=== PATIENT | male | born 1940 | race Caucasian/White ===

== ENCOUNTER → 2016-09-30 | Outpatient (CLI) | payer MEDICARE, BC, OTHER ==
[~2016-09-30] MED LIST: ASPI81TA85 PO; LIDOCAINE 1% MDV 20ML VIAL As Ordered ONE; MECL25CH PO; MULTCAP12 PO; SERT-141 PO; SIMV40TA2 PO; VERA240T16 PO; VITA-112 PO
--- NOTE | 2016-09-30 15:01 | REP ---
ULTRASOUND RIGHT NECK: Real-time sonographic evaluation of the right neck performed. The patient was referred for ultrasound guided biopsy of right neck adenopathy. Multiple enlarged lymph nodes are seen. The largest measures 1.8 x 1.1 x 2.4 cm. There is internal blood flow with duplex Doppler evaluation. We will proceed with ultrasound guided biopsy. Signed by Neil Morillo MD 09/30/2016 05:26 P
--- NOTE | 2016-09-30 15:10 | REP ---
ULTRASOUND GUIDED RIGHT NECK LYMPH NODE BIOPSY: The procedure was performed under the direct supervision of Dr. Morillo. The risks and benefits of the procedure were explained to the patient and informed consent was obtained. The largest right neck lymph node was localized using ultrasound guidance. The skin was prepped and draped in a sterile fashion. 1% Xylocaine was used as a local anesthetic. Using ultrasound guidance, a 19/20 gauge coaxial needle biopsy system was inserted and advanced into the lymph node. Six core biopsy samples were obtained and sent to the lab. The patient tolerated the procedure wall and there were no immediate complications. After the appropriate amount of monitored convalescence, the patient was discharged from the department. Reviewed by OLIVERIO Mcdonnell 09/30/2016 04:21 PEdited and Signed by Neil Morillo MD 09/30/2016 05:24 P
== END | disposition home or self-care (01) ==
LOC: M RADPRO 11:50
PROVIDERS: ATTEND Internal Medicine Medical Oncology
DX: R59.0 Localized enlarged lymph nodes (principal); Z79.899 Other long term (current) drug therapy; Z88.2 Allergy status to sulfonamides; Z88.1 Allergy status to other antibiotic agents

== ENCOUNTER → 2016-10-19 | Day surgery (SDC) | payer MEDICARE, BC, OTHER ==
[~2016-10-19] VITALS: Ht 182.9 cm; Wt 83.9 kg
[~2016-10-19] MED LIST changes: -LIDOCAINE 1% MDV 20ML VIAL As Ordered ONE; +LIDOCAINE 2% INJ 100 MG/5 ML SDV (FOR ANES.) As Ordered ONE; +LIDOCAINE W/EPINEPHRINE 1% 20ML VIAL As Ordered ONE; +LR 1,000 ML IV SCH; +MEPERIDINE INJ 25 MG/ML VIAL (J2175) IV PRN; +METOCLOPRAMIDE INJ 10MG/2ML VIAL (J2765) IV PRN; +MIDAZOLAM INJ 2 MG/2 ML VIAL (J2250) As Ordered ONE; +ONDANSETRON 4MG/2ML VIAL (J2405) IV PRN; +PERCOCET 5MG/325MG TAB PO PRN; +PROPOFOL 200 MG/20 ML VIAL As Ordered ONE; +ROCURONIUM BROMIDE 50 MG/5 ML VIAL As Ordered ONE; +dexameTHASONE 4 MG/ML 1ML VIAL (J1100) IV ONE; +fentaNYL 100 MCG/2 ML INJECTION (J3010) IV PRN; +fentaNYL 250 MCG/5 ML INJECTION (J3010) As Ordered ONE
[2016-10-19 14:30] VITALS: BP 151/74
--- NOTE | 2016-10-20 05:17 | RO ---
DATE OF PROCEDURE: 10/19/2016 PREOPERATIVE DIAGNOSIS: Cervical lymphadenopathy. POSTOPERATIVE DIAGNOSIS: Cervical lymphadenopathy. PROCEDURE PERFORMED: Open neck biopsy of the right submental lymph nodes. SURGEON: Umesh Pate MD WARP TIER: RAFITA Hernadez ANESTHESIA: CLINICAL PREAMBLE: This 76-year-old man was found to have multiple bilateral cervical lymphadenopathy. PET scan revealed multiple hyperbolic foci throughout the whole body, including submental region with a right submental lymph node with an SUV value of 8.8. Management options, including the open neck biopsy from the submental space, have been discussed. The patient understood and consented to the procedure. OPERATING ROOM (OR) NARRATION: Patient was identified in preoperative holding and brought to the operating room in stable condition. In supine position on the operating room table, patient received general anesthesia followed by orotracheal intubation without incident. Patient prepped and draped in the usual fashion for the procedure. A horizontal incision was outlined in submental region just above the palpable cervical lymphadenopathy. The skin was then infiltrated with 1% lidocaine with 1:100,000 epinephrine. The skin incision was made through the subcutaneous tissue and the platysma. The strap muscles were identified and retracted laterally to expose the right submental lymph node. The lymph node was then carefully dissected out en bloc around its capsule. Hemostasis was achieved. The right submental lymph node was then sent to pathology according to lymphoma protocol. Hemostasis was achieved using bipolar electrocautery. The deep skin layer was the reapproximated using #3-0 Vicryl. The final skin closure achieved using the Dermabond. At the end of the procedure, sponge and instrument counts were correct. No complication encountered. Estimated blood loss was less than 5 mL. General anesthesia was reversed, and patient was extubated and brought to recovery room in stable condition. REJI
== END | disposition home or self-care (01) ==
LOC: M SDC 08:34
PROVIDERS: ATTEND Otolaryngology
DX: C82.91 Follicular lymphoma, unspecified, lymph nodes of head, face, and neck (principal); I10 Essential (primary) hypertension; E78.5 Hyperlipidemia, unspecified; Z92.3 Personal history of irradiation
CPT/HCPCS: 38510; 88305; J1100; J2250; J3010

== ENCOUNTER → 2016-10-26 | Outpatient (REF) | payer MEDICARE, OTHER ==
[~2016-10-26] MED LIST changes: +AMLO25TA PO; -LIDOCAINE 2% INJ 100 MG/5 ML SDV (FOR ANES.) As Ordered ONE; -LIDOCAINE W/EPINEPHRINE 1% 20ML VIAL As Ordered ONE; -LR 1,000 ML IV SCH; -MEPERIDINE INJ 25 MG/ML VIAL (J2175) IV PRN; -METOCLOPRAMIDE INJ 10MG/2ML VIAL (J2765) IV PRN; -MIDAZOLAM INJ 2 MG/2 ML VIAL (J2250) As Ordered ONE; -ONDANSETRON 4MG/2ML VIAL (J2405) IV PRN; -PERCOCET 5MG/325MG TAB PO PRN; -PROPOFOL 200 MG/20 ML VIAL As Ordered ONE; -ROCURONIUM BROMIDE 50 MG/5 ML VIAL As Ordered ONE; -SERT-141 PO; +SERT50TA PO; +SIMV20TA2 PO; +VITA20008 PO; -dexameTHASONE 4 MG/ML 1ML VIAL (J1100) IV ONE; -fentaNYL 100 MCG/2 ML INJECTION (J3010) IV PRN; -fentaNYL 250 MCG/5 ML INJECTION (J3010) As Ordered ONE
[2016-10-28 10:28] LABS: HEPATITIS B SURFACE ANTIBODY NEGATIVE (POSITIVE)
== END ==
LOC: M LAB REF 17:06
PROVIDERS: ATTEND Internal Medicine Medical Oncology
DX: D75.0 Familial erythrocytosis (principal)

== ENCOUNTER → 2016-10-28 | Outpatient (CLI) | payer MEDICARE, BC, OTHER ==
[~2016-10-28] MED LIST changes: -AMLO25TA PO; +ISOVUE-370 76% 100ML VIAL (Q9967) As Ordered ONE; +SERT-141 PO; -SERT50TA PO; -SIMV20TA2 PO; -VITA20008 PO
--- NOTE | 2016-10-28 11:23 | REP ---
CT BRAIN WITHOUT AND WITH CONTRAST: 10/28/2016. Clinical history: CT 08/19/2015 at [facility]. Clinical history: Non-Hodgkin's lymphoma with progressive dizziness. Evaluate for possible metastatic disease or other. Technique: Axial noncontrast images with rescanning following bolus of 75 mL of Isovue 370. Findings. Ventricles are midline, symmetric and their size proportionate to the mild diffuse cerebral atrophy. This is unchanged since the prior study. There is some atrophy of the cerebellum as well. Basal ganglia appear symmetric and normal. Some heterogeneous low attenuation white matter changes which are mild and represent some degree of small vessel white matter ischemic change. Cortical stripe is preserved except for the mild atrophy and there is no vascular territory infarct, hemorrhage, mass or mass effect. I see no abnormal meningeal enhancement, enhancing mass, gyriform enhancement or vascular lesion. Visualized mastoids and sinuses were clear. The skull base and calvarium show no fracture or focal lesion. Impression: 1. Some mild atrophy, age appropriate without acute infarct, hemorrhage, edema or mass. No abnormal enhancement to suggest acute infarct, enhancing mass or other significant finding. Brainstem and cerebellum without acute finding. There is atrophy in the cerebellum. 2. Mastoids, sinuses, skull base and calvarium all intact. Signed by Rakan Navarrete MD 10/28/2016 04:43 P
== END ==
LOC: M RAD 07:36
PROVIDERS: ATTEND Internal Medicine Medical Oncology
DX: C85.90 Non-Hodgkin lymphoma, unspecified, unspecified site (principal); C79.31 Secondary malignant neoplasm of brain
CPT/HCPCS: 70470; Q9967

== ENCOUNTER 2016-11-28 14:58 | Inpatient (IN) | payer MEDICARE, BC, OTHER ==
[~2016-11-28] VITALS: Ht 182.9 cm; Wt 85.7 kg
[~2016-11-28 14:58] MED LIST changes: -ISOVUE-370 76% 100ML VIAL (Q9967) As Ordered ONE; -SERT-141 PO; +SERT50TA PO
[2016-11-28] MEDS ORDERED: OXAZEPAM 10 MG CAP PO PRN (16:30)
[2016-11-28] MEDS ORDERED: ONDANSETRON 4MG/2ML VIAL (J2405) IV PRN (16:30)
[2016-11-28] MEDS ORDERED: ACETAMINOPHEN TAB 650MG DOSE (2X325MG) PO PRN (16:30)
[2016-11-28] MEDS ORDERED: POLYVINYL ALCOHOL OPHTH SOLN 15 ML(LIQUITEARS) OU PRN (16:30)
[2016-11-28] MEDS ORDERED: SIMV20TA2 PO (16:33)
[2016-11-28] MEDS ORDERED: VITA20008 PO (16:34)
[2016-11-28 17:00] VITALS: BP 110/57
[2016-11-28 17:01] LABS: MEAN CORPUSCULAR HEMOGLOBIN 29.9 pg (27.0-33.0); MEAN CORPUSCULAR HGB CONC 32.3 g/dl (32.0-36.5); MEAN CORPUSCULAR VOLUME 92.6 fl (80.0-96.0); PLATELET COUNT, AUTOMATED 153 k/mm3 (150-450); RED CELL DISTRIBUTION WIDTH 15.6 % (11.5-14.5); WHITE BLOOD COUNT 12.8 K/mm3 (4.0-10.0)
[2016-11-28 17:04] VITALS: BP 103/55
[2016-11-28] MEDS: MULTIVITAMINS/MINERALS THERAP 1 TAB PO SCH (17:07)
[2016-11-28] MEDS: VITAMIN D 1,000 INTERNATIONAL UNITS TABLET PO SCH (17:08)
[2016-11-28] MEDS: NS 1,000 ML IV SCH (17:08)
[2016-11-28] MEDS: ASPIRIN 81 MG ENTERIC TAB PO SCH (17:08)
[2016-11-28 17:09] LABS: INR 1.05
--- NOTE | 2016-11-28 17:16 | ECGEPIP ---
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
--- NOTE | 2016-11-28 17:20 | HPE ---
DATE OF ADMISSION: 11/28/2016 This is a patient of Dr. Ritter. Oncologist is Dr. Ashley Howell. ENT provider is Dr. Pate. CHIEF COMPLAINT: SUMMARY OF HIS PRESENTATION: This is a 76-year-old patient with follicular lymphoma who is receiving his second round of chemotherapy starting today. He was started on Rituxan. During the course of the infusion, he developed hypotension and was noted to be orthostatic. The infusion was stopped. He was given IV fluids. He did not respond to a 1 liter bolus. I was called for admission, and he was transferred to the intensive care unit with PCU status. Recently, he has been feeling. In the last week, he has had decreased appetite and was dehydrated with a gastrointestinal (GI) illness around a week ago, but since that point, he has been doing okay. He has been afebrile. Apparently at oncology today, he did have a temperature recorded of 100.8 as reported by the family, one of whom is a nurse. Surgical history is notable for his neck biopsy as well as . Past medical history is notable for follicular lymphoma, stage III, hypertension, polycythemia for which he had been getting quarterly blood draws up until November of last year, hypercholesterolemia, history of prostate cancer, status post prostate seeding in 2001, history of rosacea. ALLERGIES: SHELLFISH. MEDICATIONS AT HOME: Include: - simvastatin 20 mg daily - aspirin 81 mg daily - multivitamin daily - Zoloft, which he apparently stopped taking in the last few weeks - vitamin D supplement 2000 units daily SOCIAL HISTORY: He is a nonsmoker. He drinks a tall [place] every evening at 5:00 p.m. He has never had withdrawal symptoms. His is succumbing to Alzheimer's disease and has home care, which is a cause of stress for him. REVIEW OF SYSTEMS: No headache. No visual changes. No runny nose. No sore throat. No neck pain. No rhinorrhea. He does suffer from dry eyes chronically. No cough. No shortness of breath. No orthopnea. No paroxysmal nocturnal dyspnea. No palpitations. No abdominal pain. He has had no change in bowel or bladder habits in the last week. No focal weakness. No history of seizures. Otherwise is unremarkable. PHYSICAL EXAMINATION: Vital Signs: Heart rate 112, blood pressure 97/54, 97% on room air, respiratory rate is 17. He is awake and appropriately interactive, pleasantly conversant and making jokes. Head is normocephalic. Sinuses are nontender. Pupils are equal, round and reactive, anicteric, not injected. Mucous membranes are moist. Neck is supple. No cervical or supraclavicular adenopathy. Breathing is symmetrical. I:E ratio is 1:3 with some upper airway sounds. Heart is in a regular rate and rhythm that is tachycardic with a heart rate of 112. Abdomen is soft, doughy, nontender to deep palpation. No lower extremity edema. Strength is symmetrical in the upper and lower extremities. Cranial nerves II-XII are grossly intact. He has normal mood and affect, although he seems somewhat anxious. There are labs available for me to review from Dr. Howell' office, which include a sodium of 143, potassium 4.2, chloride 105, carbon dioxide 28, BUN 16, creatinine 1, glucose of 99. White cell count 4.4. Hemoglobin 14.5 and platelets of 315. ASSESSMENT: This is a 76-year-old with orthostatic hypotension brought on during chemotherapy. The patient is still relatively tachycardic and hypotensive to the PCU with inpatient status as requires two midnights for further workup and diagnosis. My plan will be as follows: 1. Cardiovascular: The patient will receive IV fluid, will be monitored on telemetry overnight. I noticed that there is some ectopy on monitor. Will check a magnesium level and again repeat labs. This is most likely a reaction to his Rituxan. I did discuss this case by phone with Dr. Howell at the time of transfer. The possibility of infectious disease occurs to me. I have sent blood cultures. The patient is currently afebrile. No role for antibiotics at this time. Will monitor him clinically. 2. The patient has a history of hypertension and is on verapamil at home. The plan had been to cut that dose in half. At this point, we will hold it completely as he is relatively hypotensive. 3. The patient has hyperlipidemia. Will continue his simvastatin. 4. The patient has a history of relatively heavy alcohol use. Will make Serax available as needed. 5. The patient has appropriate deep vein thrombosis (DVT) prophylaxis.
[2016-11-28 17:32] LABS: ALBUMIN 2.7 GM/DL (3.2-5.2); ALBUMIN/GLOBULIN RATIO 0.87 (1.00-1.93); ALKALINE PHOSPHATASE 79 U/L (45-117); ALT/SGPT 34 U/L (12-78); ANION GAP 10 MEQ/L (8-16); AST/SGOT 25 U/L (15-37); BILIRUBIN,TOTAL 0.7 MG/DL (0.2-1.0); BLOOD UREA NITROGEN 16 MG/DL (7-18); CALCIUM LEVEL 7.9 MG/DL (8.8-10.2); CARBON DIOXIDE LEVEL 24 MEQ/L (21-32); CHLORIDE LEVEL 111 MEQ/L (98-107); CREATININE FOR GFR 1.14 MG/DL (0.70-1.30); GLOMERULAR FILTRATION RATE > 60.0 (>42); GLUCOSE, FASTING 133 MG/DL (83-110); MAGNESIUM LEVEL 1.6 MG/DL (1.8-2.4); POTASSIUM SERUM 3.8 MEQ/L (3.5-5.1); SODIUM LEVEL 145 MEQ/L (136-145); T UPTAKE 36 % (33-40); THYROXINE (T4) 6.4 UG/DL (4.5-12.0); TOTAL PROTEIN 5.8 GM/DL (6.4-8.2)
--- NOTE | 2016-11-28 17:40 | REP ---
Portable chest x-ray: Single view: History: Orthostasis. Comparison chest x-ray: 08/23/2016. Findings: EKG monitoring electrodes overlie the chest. The lungs are well inflated and clear. Heart is not enlarged. Pulmonary vasculature is not increased. No significant bony abnormality is seen. Impression: No active disease. Signed by Garland Lott MD 11/28/2016 07:46 P
[2016-11-28 20:00] VITALS: BP 119/58
[2016-11-28 21:02] LABS: ANISOCYTOSIS 1+; BANDS 23 % (< 11); OVALOCYTES 1+; POIKILOCYTOSIS 1+
[2016-11-28] MEDS: SIMVASTATIN 20 MG TAB PO SCH (21:03)
[2016-11-29] VITALS (7 sets, daily range): BP systolic 101–126; BP diastolic 55–75
[2016-11-29] MEDS: NS 1,000 ML IV SCH ×3 (02:53→22:11)
[2016-11-29 05:15] LABS: CALCIUM LEVEL 7.1 MG/DL (8.8-10.2); CREATININE FOR GFR 1.25 MG/DL (0.70-1.30); GLOMERULAR FILTRATION RATE 59.5 (>42); MAGNESIUM LEVEL 1.7 MG/DL (1.8-2.4); POTASSIUM SERUM 4.6 MEQ/L (3.5-5.1)
[2016-11-29 05:20] LABS: BASO % 0.1 % (0.0-1.0); EOS % 0.2 % (0.0-3.0); LARGE UNSTAINED CELL # 0.1 K/mm3 (0.0-0.4); LYMPH # 0.2 K/mm3 (1.5-4.5); LYMPH % 1.3 % (24.0-44.0); MEAN CORPUSCULAR HEMOGLOBIN 29.4 pg (27.0-33.0); MEAN CORPUSCULAR HGB CONC 31.6 g/dl (32.0-36.5); MEAN CORPUSCULAR VOLUME 93.1 fl (80.0-96.0); MONO # 0.6 K/mm3 (0.0-0.8); MONO % 4.4 % (0.0-5.0); NEUTROPHILS # 12.8 K/mm3 (1.8-7.7); NEUTROPHILS % 92.9 % (36.0-66.0); PLATELET COUNT, AUTOMATED 111 k/mm3 (150-450); RED CELL DISTRIBUTION WIDTH 15.9 % (11.5-14.5); WHITE BLOOD COUNT 13.8 K/mm3 (4.0-10.0)
[2016-11-29] MEDS ORDERED: MAG SULF 1GM/100ML (MAG RUN) 1 GM in APPROPRIATE DILUENT 1 EA IV ONE (08:00)
[2016-11-29 08:23] LABS: VENOUS BASE EXCESS -3.3 (-2.0-2.0); VENOUS O2 SATURATION 94.7 % (60.0-80.0); VENOUS PARTIAL PRESSURE CO2 37.1 mmHg (38.0-50.0); VENOUS PARTIAL PRESSURE O2 71.7 mmHg (30.0-50.0); VENOUS STANDARD HCO3 21.7 MEQ/L; VENOUS TOTAL CO2 22.4 MEQ/L (24.0-28.0)
[2016-11-29] MEDS: MULTIVITAMINS/MINERALS THERAP 1 TAB PO SCH (08:43)
[2016-11-29] MEDS: ASPIRIN 81 MG ENTERIC TAB PO SCH (08:44)
[2016-11-29] MEDS: VITAMIN D 1,000 INTERNATIONAL UNITS TABLET PO SCH (08:44)
[2016-11-29] MEDS: ENOXAPARIN 40 MG/0.4 ML SYRINGE (J1650) SC SCH (08:44)
[2016-11-29] MEDS ORDERED: VANCOMYCIN HCL 1,000 MG, VIAL MATE ADAPTER 1 EACH in D5W 250 ML IV SCH (09:00)
[2016-11-29 09:06] LABS: ERYTHROCYTE SEDIMENTATION RATE 6 mm/hr (0-20)
--- NOTE | 2016-11-29 09:15 | PHACANCOPD ---
PHARMACY VANCOMYCIN DOSING Pt Demographics Demographics Patient Age:76 , Weight:84.400 , Gender: male Adjusted Body Weight Date: 11/29/16, Adjusted Body Weight: [84.4] Kg Events Past 24 Hours Events Past 24 Hours: NO: Change in CrCl, Dialysis, Diuretic Therapy, Elevation in WBC, Fever, Other, Pending Diagnostics, Pending Procedures Vancomycin Vancomycin indication: Sepsis Vancomycin Target Ranges: 15-20 mcg/ml Vancomycin Load Y/N: Yes Load Dose Date Time Vancomycin Load Dose: 2g Date: 11/29/16 Time: 09:00 Vancomycin Dose Date: 11/29/16. Current Vancomycin Dose: [1g q24h] Intermittent Dosing?: No Labs Labs Item Value Date Time White Blood Count 12.8 K/mm3 H 11/28/16 1643 White Blood Count 13.8 K/mm3 H 11/29/16 0442 Creatinine 1.14 MG/DL 11/28/16 1643 Creatinine 1.25 MG/DL 11/29/16 0442 Vital Signs Label Value Date Time Patient Temperature 99.8 degrees F 11/28/16 2000 Temperature Source Tympanic 11/28/16 2000 Patient Temperature 98.4 degrees F 11/29/16 0000 Temperature Source Tympanic 11/29/16 0000 Patient Temperature 99.0 degrees F 11/29/16 0400 Temperature Source Tympanic 11/29/16 0400 Micro Microbiology 11/28/16 Blood Culture, Received Pending 11/28/16 Blood Culture, Received Pending Creatinine Clearance Date:11/29/16. Creatinine Clearance: [53.5ml/min]. Pending Labs blood culture Assessment and Plan Maintaining Current Dose?: Yes Reason for dose change: No Dose Change Pharmacist Note Pharmacist Note Date: 11/29/16. Pharmacist note: Pt is a 76 y/o male with cancer being treated for sepsis target trough of 15-20mcg/ml. Pt recently has been having fevers and elevated wbc. There is no history of therapy with vancomycin at [facility]. To achieve target trough a loading dose of 2g was started at 9:00 11/29/16. Maintenance will consist of 1g q24h. We will continue to monitor and adjust dose as needed. MELISA THOMAS PHARMACY Nov 29, 2016 09:15
[2016-11-29] MEDS ORDERED: VANCOMYCIN HCL 1,000 MG, VIAL MATE ADAPTER 1 EACH in D5W 250 ML IV ONE (10:00)
--- NOTE | 2016-11-29 12:53 | IPN ---
DATE: 11/29/2016 Time patient was seen was this morning at 8:45 The patient has been seen and examined at bedside. No acute events overnight. The patient is feeling better today. Denies any chest pain, trouble breathing, abdominal pain, nausea, vomiting, diarrhea, or constipation. The patient does remember what happened yesterday and he stated that he was having his regular infusion at the oncology office and about 4 hours into the infusion he blacked out and when he woke up he was very weak and could not stand up and his systolic blood pressure was in the 40s. Therefore, he was admitted. While in the hospital, he noticed that he has a rash on his arms and legs and he received at least 4 liters of fluid overnight and he is feeling better now. He believes that his hypotension was related with his medication. PHYSICAL EXAMINATION: VITAL SIGNS: Temperature 96, pulse 64, respirations 20, blood pressure 110/75, oxygen saturation was 97% on room air. GENERAL: The patient is a pleasant, elderly male who was alert, awake, and oriented times three. Does not appear to be in distress. Resting comfortably in bed with the head elevated at 30 degrees. HEENT: Normocephalic, atraumatic. Extraocular motors intact. Mucosa moist. NECK: Supple. No neck lymphadenopathy. CARDIOVASCULAR: Regular rate and rhythm. Normal S1, S2. No murmurs, rubs or gallops. LUNGS: Clear to auscultation bilaterally. No wheezes, rales or rhonchi. ABDOMEN: Positive bowel sounds. Soft, nontender, nondistended. No peritoneal signs. No ecchymosis. EXTREMITIES: Slight nonpitting edema in bilateral arms. Otherwise, no ecchymosis. No clubbing. SKIN: Warm and dry. The patient does have a petechial type of rash in bilateral upper and lower extremities. NEUROLOGIC: Cranial nerves II through XII intact. No focal or neurological deficits. PSYCHIATRIC: Normal affect. LABORATORY DATA: WBC 13.8, elevated from yesterday 12.8, hemoglobin 12.5, hematocrit 39.7, reduced from yesterday, platelets 111, reduced from 153 yesterday. Sodium 142, potassium 4.6, chloride 101, bicarbonate 21, anion gap 10, BUN 18, creatinine 1.25, GFR 59.5, fasting glucose 173, lactic acid was found to be slightly elevated today at 2.3. Calcium 7.1, magnesium 1.7, total CK was 30. CK-MB 1, troponin less than 0.02, C-reactive protein was slightly elevated at 5.55. The patient had an ABG this morning that showed pH of 7.377, PCO2 of 37.1, PO2 of 71.7, saturating at 94% with base excess of -3.3 liters. Blood culture times two is pending. No new imaging. ASSESSMENT AND PLAN: 76-year-old male with a past medical history of follicular lymphoma, stage III, recently started on chemotherapy with Rituxan, finished the first cycle one month ago and yesterday was receiving the second cycle. Also history of hypertension, polycythemia, hypercholesterolemia, history of prostate cancer, status post prostate seeding in 2001, history of rosacea, who presented with: 1. Severe hypotension, responded to fluid. It is possibly secondary to severe sepsis versus anaphylactic shock from infusion. However, the patient did have the same infusion. The patient did also have elevated WBC this morning compared to yesterday and elevated C-reactive protein. The patient has been started on vancomycin and Zosyn to empirically cover for severe sepsis. Blood culture result is pending currently. The patient did develop petechial type of rash on both arms and legs, which indicates possible drug reaction. We will continue to monitor. 2. History of hypertension. Continue home medications. Verapamil has been cut in half. We will continue to hold at this point. 3. Hyperlipidemia. Continue statin. 4. History of alcohol use. The patient is on Serax as needed. 5. Deep vein thrombosis (DVT) prophylaxis with Lovenox subcutaneously. DISPOSITION: The patient's blood pressure has improved compared to yesterday status post IV fluid resuscitation. Today, the patient's white count worsened and therefore has been started on empiric antibiotics; however, the patient's history does represent possible drug reaction. We will continue to monitor the patient closely. The patient has been discussed with attending doctor, Dr. Marquez. My preceptor for this patient encounter was Dr. Marquez. The preceptor was physically present in the building during the encounter and was fully available. As needed, all aspects of the patient interview, examination, medical decision making process, and medical care plan development were reviewed and approved by the preceptor. The preceptor is aware and concurs with the plan as stated in the body of this note and will attest to such by his/her cosignature.
[2016-11-29] MEDS: PIPERACILLIN/TAZOBACTAM SOD 3.375 GM in D5W MINI-BAG PLUS 50 ML IV SCH ×2 (13:24→18:23)
--- NOTE | 2016-11-29 14:43 | IPN ---
MEDICAL ONCOLOGY INPATIENT PROGRESS NOTE DATE OF SERVICE: 11/28/2016 Dr. Gallo asked me to write a note regarding Maninder Vides, a 76-year-old man with stage III, grade 1-2 follicular non-Hodgkin's lymphoma, who began palliative treatment with bendamustine/rituximab four weeks ago. He has had major response to treatment, his initially very bulky cervical, supraclavicular and axillary adenopathy now nearly imperceptible and barely palpable on exam. He was in the office today for his second cycle of treatment, but skilled nursing through his rituximab infusion developed lightheadedness, was found to be hypotensive. He is on verapamil. He was not tachycardiac. He was put in a reclining position, given IV fluids and rituximab was stopped. He had been pretreated with Tylenol and Benadryl and dexamethasone. Orthostatic measurements confirmed orthostatic hypotension. He completed of 1 liter bag of normal saline and at that point requested to go to the bathroom, but in the bathroom again felt faint and began to faint and required being brought back immediately to a chair and reclined, where he was found to be quite hypotensive. systolic blood pressure 70. His peripheral pulses remained palpable and nontachycardic. I repeat orthostatic measurements he was again orthostatic and at this point I requested admission and Dr. Gallo accepted him on the hospitalist service. Once hospitalized he has developed a petechia like rash involving both forearms, upper and lower back, inguinal folds. His platelets in the office today and again here in the hospital are normal. Labs are not consistent with dehydration , though he complains of anorexia and generalized weight loss over the last few months. He has some mild leukocytosis, normal hemoglobin and hematocrit, and normal platelets. Electrolytes are unremarkable. Lactate dehydrogenase is normal at 212. Troponin is undetectable, albumin 2.7, TSH 2.4. At the bedside tonight in the ICU, he is accompanied by his son. Shukri is awake, alert, upright, reclining gently, chatty, talkative. Denies any distress, shortness of breast, tongue swelling or difficulty swallowing. His heart rate is 110 on the monitor. He shows me his rash which is diffuse, coalescing and again involving the arms, back, upper thighs/inguinal region. IMPRESSION: 1. Rituximab SIRS (standard infusion reaction syndrome) reaction, moderate to severe, now recovered after IV hydration with a rash, orthostatic hypotension, no respiratory symptoms. No evidence of tumor lysis syndrome. 2. Stage III follicular non-Hodgkin's lymphoma status post one cycle of bendamustine/Rituxan with major clinical response. Former bulky neck axillary adenopathy now undetectable. PLAN: 1. Supportive care with IV fluids and monitoring. Agree with repeating CBC as done already tonight and tomorrow morning along with CMP. Persistent or recurrent hypotension should prompt consideration of epinephrine treatment as a standard treatment for rituximab related SIRS. Agree with no empiric antibiotics for now. 2. I will follow Mr. Vides during this admission. I leave town on Monday for four days. In my stead will be one of the covering oncologists as needed. Edited 11/28/2016 @ 8904 brandy MENDOZA
[2016-11-29] MEDS: diphenhydrAMINE INJ 50MG/ML VIAL (J1200) IV SCH ×2 (18:50→23:54)
[2016-11-29] MEDS: SIMVASTATIN 20 MG TAB PO SCH (22:10)
[2016-11-30] VITALS (11 sets, daily range): BP systolic 121–184; BP diastolic 64–83
[2016-11-30 05:19] LABS: ANION GAP 9 MEQ/L (8-16); BLOOD UREA NITROGEN 18 MG/DL (7-18); CALCIUM LEVEL 7.8 MG/DL (8.8-10.2); CARBON DIOXIDE LEVEL 24 MEQ/L (21-32); CHLORIDE LEVEL 111 MEQ/L (98-107); CREATININE FOR GFR 1.13 MG/DL (0.70-1.30); GLOMERULAR FILTRATION RATE > 60.0 (>42); GLUCOSE, FASTING 121 MG/DL (83-110); MAGNESIUM LEVEL 2.1 MG/DL (1.8-2.4); POTASSIUM SERUM 4.3 MEQ/L (3.5-5.1); SODIUM LEVEL 144 MEQ/L (136-145)
[2016-11-30 05:52] LABS: BASO % 0.2 % (0.0-1.0); EOS % 0.6 % (0.0-3.0); LARGE UNSTAINED CELL # 0.2 K/mm3 (0.0-0.4); LARGE UNSTAINED CELL % 2.3 % (0.0-4.0); LYMPH # 0.6 K/mm3 (1.5-4.5); LYMPH % 7.3 % (24.0-44.0); MEAN CORPUSCULAR HGB CONC 32.2 g/dl (32.0-36.5); MEAN CORPUSCULAR VOLUME 93.3 fl (80.0-96.0); MONO # 0.4 K/mm3 (0.0-0.8); MONO % 5.8 % (0.0-5.0); NEUTROPHILS # 5.6 K/mm3 (1.8-7.7); NEUTROPHILS % 83.8 % (36.0-66.0); PLATELET COUNT, AUTOMATED 110 k/mm3 (150-450); RED CELL DISTRIBUTION WIDTH 16.3 % (11.5-14.5); WHITE BLOOD COUNT 6.7 K/mm3 (4.0-10.0)
--- NOTE | 2016-11-30 06:08 | ECGEPIP ---
Stationary ECG Study 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
[2016-11-30] MEDS: diphenhydrAMINE INJ 50MG/ML VIAL (J1200) IV SCH ×3 (06:20→18:30)
[2016-11-30] MEDS: MULTIVITAMINS/MINERALS THERAP 1 TAB PO SCH (08:26)
[2016-11-30] MEDS: VITAMIN D 1,000 INTERNATIONAL UNITS TABLET PO SCH (08:26)
[2016-11-30] MEDS: ASPIRIN 81 MG ENTERIC TAB PO SCH (08:26)
[2016-11-30] MEDS: ENOXAPARIN 40 MG/0.4 ML SYRINGE (J1650) SC SCH (08:26)
--- NOTE | 2016-11-30 09:38 | IPN ---
DATE: 11/29/2016 Mr. Vides is reclining comfortably in his bed. He is quite chatty and talkative tonight. He has coalescing petechial rash, now seemingly more coalesced in dependent areas, not progressed. He is on a Benadryl. He was started on broad-spectrum antibiotics today. I have spoken with Dr. Marquez. Reviewing his blood cultures and vital signs, he has had no fever spikes for 24 hours. Blood cultures are negative to date. Overall, my strong opinion is this is a rituximab standard infusion reaction and not likely to be a case of an infection associated sepsis. It would be reasonable to discontinue antibiotics early. He is receiving fixed dose Benadryl every 6 hours, which is reasonable to continue for at least 24 hours. The petechial rash may persist beyond the time of his initial hypotensive reaction and may take days, possibly even weeks to fully resolved. Today's blood pressure is stable. He is not requiring fluid boluses. He is quite comfortable and able to speak in full long sentences telling jokes etc. IMPRESSION: Mr. Vides is a 76-year-old man with stage IIIA follicular non-Hodgkin's lymphoma status post one cycle of bendamustine rituxan with major clinical response. His second cycle was interrupted and complicated by what appears to be a rituximab associated reaction. This is not anaphylaxis per se. It is not a drug allergy per se, but rather a recognized infusion reaction associated with certain monoclonal antibodies, including rituximab, cetuximab, and trastuzumab. Treatment is typically Benadryl, sometimes epinephrine and slowing down infusion of the drug. He received about a half dose of rituximab before this reaction started yesterday, having received a full dose on his first cycle uneventfully. Barring any recurrent hypotension or fever spikes, he could probably discharge home fairly soon with as needed Benadryl. He is currently scheduled to return to the office Monday morning for rechallenge with rituximab, which is typically done at a half rate and we would probably attempt a half dose, watching him super carefully and treating per typical protocol for rituximab reactions as needed. If he had another severe reaction, we would discontinue rituximab altogether; however, it is the back bone of his treatment currently and a major component of treating non-Hodgkin's lymphoma, and the patient's are often rechallenged with the drug and a way is found for them to tolerate it, either by splitting the dose or infusing much more slowly. There are alternative treatments if necessary. I have reviewed all these issues with Maninder holbrook at bedside. PLAN: 1. If the patient continues a stable, normotensive with no progression of rash, he is probably safe to go home off antibiotics and with as needed Benadryl. 2. He has a followup scheduled in the office on Monday. 3. I will be out of town November [address] Woody and Dr. Tarango are covering the practice and are able to consult on an as-needed basis.
[2016-11-30 11:04] LABS: CHOLESTEROL LEVEL 121 MG/DL (<200); TRIGLYCERIDES LEVEL 116 MG/DL (<150)
[2016-11-30 11:22] LABS: INR 1.15
--- NOTE | 2016-11-30 11:57 | IPN ---
DATE OF VISIT: 11/30/2016 Time patient was seen: 8:15. The patient has been seen and examined at the bedside. The patient became very bradycardic overnight with heart rate in the high 30s. EKG was done and shows sinus bradycardia; however the patient was asymptomatic. Blood pressure was stable. The patient's heart rate remained in the 40s overnight. The patient also admits to feeling more tired when the heart rate was slower; however, blood pressure remained stable in the 130s to 140s systolic. Otherwise the patient denies any fever or chills, any chest pain, trouble breathing, abdominal pain, nausea, vomiting diarrhea or constipation. The patient admits to his rash getting better. He denies any other current complaint. PHYSICAL EXAMINATION: VITAL SIGNS: Temperature 96.2, pulse 58, respirations 22, blood pressure 142/73, oxygen saturation 97% on room air. GENERAL: The patient is a pleasant, well-developed, well-nourished elderly male who is alert and oriented times three. He does not appear to be in distress, resting comfortably in bed with head elevated at 30 degrees. HEENT: Normocephalic atraumatic. Extraocular muscles intact. Mucosa moist. NECK: Supple, no neck lymphadenopathy. CARDIOVASCULAR: Bradycardic, S1, S2, no murmurs. LUNGS: Clear to auscultation bilaterally. No rales or rhonchi. ABDOMEN: Positive bowel sounds. Soft, nontender, No peritoneal signs. Normal pulses. EXTREMITIES: No edema, clubbing or cyanosis. SKIN: Warm and dry. NEUROLOGY: Cranial nerves II-XII intact, no focal neurologic deficits. LABORATORY DATA WBC 6.7, hemoglobin 12.3, hematocrit 30.3, with platelet count of 110 and MCV of 93.3. Sodium 144, potassium 4.3, chloride 101, bicarbonate 24, anion gap 9, BUN 18, creatinine 1.13, GFR greater than 60%, 9.5, fasting glucose was 121, repeat lactic acid last night was 1, calcium 7.8, magnesium 2.1, total CK 43, CK MB 1, troponin less than 0.02. CRP 2.37. Blood culture times two are negative after 48 hours. The patient's lipid panel is pending, new coagulation panel is pending. ASSESSMENT AND PLAN: 76-year-old male with past medical history of stage III A follicular lymphoma recently started on chemotherapy with Rituximab, finished the first cycle a month ago and received half of the second cycle on the day of admission. Other history including hypertension, polycythemia, hypercholesterolemia, prostate cancer, status post prostate seeding in 2001, history of rosacea presented with: 1. Severe hypotension, responded to fluid. The patient did have a mildly elevated WBC and also CRP. The patient was initially started on vancomycin and Zosyn; however was discontinued due to hematology/oncology belief this is likely a drug reaction to due rituximab. In addition the patient's petechial rash has improved with Benadryl. Will continue to monitor. 2. Bradycardia with a heart rate in the high 30s last night. EKG shows sinus bradycardia. The patient is currently not on any beta blockers or any medication to slow down the heart rate. Will consider consulting cardiology to investigate the etiology for the bradycardia. At this point will order a grounds supervisor, repeat the EKG, as well as rule out infectious etiologies for the bradycardia and continue to monitor the patient. 3. History of hypertension. Continue to hold home medications due to severe hypotension. 4. Hyperlipidemia. Continue statin. 5. History of alcohol use. Continue Serax as needed. The patient has not used any yet. 6. History of prostate cancer. Stable. 7. History of hypercholesterolemia. Lipid panel has been ordered due to acute bradycardia. 8. Deep venous thrombosis (DVT) prophylaxis. On Lovenox. DISPOSITION: The patient's blood pressure remains stable; however the patient developed a new bradycardia. Will continue to monitor and consider to consult cardiology. The patient has been discussed with the attending doctor, Dr. Marquez. My preceptor for this patient encounter was Dr. Marquez. The preceptor was physically present in the building during the encounter and was fully available as needed. All aspects of the patient interview, examination, medical decision making process, and medical care plan development were reviewed and approved by the preceptor. The preceptor is aware and concurs with the plan as stated in the body of this note and will attest to such by his co-signature.
--- NOTE | 2016-11-30 16:42 | ECGEPIP ---
Stationary ECG Study [facility] Test Date: 2016-11-30 Pat Name: BAYRON VASQUEZ Department: Room: [place] [address] Gender: M Mems Device Scientist: KIRBY : 1940 Requested By: DARRON QUINTEROS Order Number: [id number] Reading MD: Anisa Ornelas Measurements Intervals [place] Rate: 62 P: 40 NV: 156 QRS: 14 QRSD: 90 T: 33 QT: 428 QTc: 436 Interpretive Statements SINUS RHYTHM NORMAL RATE FASTER Electronically Signed On 11-30-2016 16:42:29 EST by Anisa Ornelas
[2016-11-30] MEDS: SIMVASTATIN 20 MG TAB PO SCH (22:33)
[2016-12-01] MEDS ORDERED: SLF 3 ML SYR IV PRN (01:00)
[2016-12-01] MEDS: diphenhydrAMINE INJ 50MG/ML VIAL (J1200) IV SCH ×3 (01:16→11:58)
[2016-12-01 05:54] VITALS: BP_SYST 135; BP_SYST 143; BP_SYST 167; BP_DIAS 74; BP_DIAS 76; BP_DIAS 77
[2016-12-01 05:56] LABS: BASO % 0.5 % (0.0-1.0); EOS # 0.2 K/mm3 (0.0-0.50); EOS % 4.5 % (0.0-3.0); LARGE UNSTAINED CELL # 0.1 K/mm3 (0.0-0.4); LARGE UNSTAINED CELL % 2.4 % (0.0-4.0); LYMPH # 0.8 K/mm3 (1.5-4.5); LYMPH % 20.2 % (24.0-44.0); MEAN CORPUSCULAR HEMOGLOBIN 29.6 pg (27.0-33.0); MEAN CORPUSCULAR HGB CONC 32.1 g/dl (32.0-36.5); MEAN CORPUSCULAR VOLUME 92.3 fl (80.0-96.0); MONO # 0.3 K/mm3 (0.0-0.8); MONO % 8.3 % (0.0-5.0); NEUTROPHILS # 2.4 K/mm3 (1.8-7.7); PLATELET COUNT, AUTOMATED 138 k/mm3 (150-450); RED CELL DISTRIBUTION WIDTH 15.9 % (11.5-14.5); WHITE BLOOD COUNT 3.7 K/mm3 (4.0-10.0)
[2016-12-01] MEDS ORDERED: SLF 3 ML SYR IV SCH (06:00)
[2016-12-01 06:31] LABS: ANION GAP 4 MEQ/L (8-16); BLOOD UREA NITROGEN 15 MG/DL (7-18); CARBON DIOXIDE LEVEL 31 MEQ/L (21-32); CHLORIDE LEVEL 110 MEQ/L (98-107); CREATININE FOR GFR 0.99 MG/DL (0.70-1.30); GLOMERULAR FILTRATION RATE > 60.0 (>42); GLUCOSE, FASTING 92 MG/DL (83-110); POTASSIUM SERUM 4.4 MEQ/L (3.5-5.1); SODIUM LEVEL 145 MEQ/L (136-145)
[2016-12-01 08:00] VITALS: BP_SYST 118; BP_SYST 120; BP_SYST 121; BP_SYST 162; BP_DIAS 62; BP_DIAS 64; BP_DIAS 68; BP_DIAS 72
[2016-12-01] MEDS: ENOXAPARIN 40 MG/0.4 ML SYRINGE (J1650) SC SCH (08:12)
[2016-12-01] MEDS: ASPIRIN 81 MG ENTERIC TAB PO SCH (08:12)
[2016-12-01] MEDS: VITAMIN D 1,000 INTERNATIONAL UNITS TABLET PO SCH (08:12)
[2016-12-01] MEDS: MULTIVITAMINS/MINERALS THERAP 1 TAB PO SCH (08:12)
[2016-12-01 08:13] VITALS: BP 162/72
[2016-12-01] MEDS ORDERED: AMLO25TA PO (09:53)
--- NOTE | 2016-12-01 16:23 | DSES ---
DATE OF ADMISSION: 11/28/2016 DATE OF DISCHARGE: 12/01/2016 TIME PATIENT SEEN: This morning at 9:00. ADMISSION DIAGNOSES: 1. Severe hypotension. 2. History of hypertension. 3. History of hyperlipidemia. 4. History of heavy alcohol use. DISCHARGE DIAGNOSES: 1. Severe hypotension, responded to fluid, likely secondary to drug reaction to rituximab. 2. Bradycardia. 3. History of hypertension. 4. Hyperlipidemia. 5. Alcohol use history. 6. History of prostate cancer. 7. History of hypercholesterolemia. CONSULTANTS: Dr. Howell from hematology/oncology and Dr. Dukes from cardiology. PROCEDURES AND IMAGING: Patient had a portable chest x-ray, which showed no active disease. Patient had an EKG on 11/30/2016, which showed sinus rhythm with rate of 62. HISTORY OF PRESENT ILLNESS: A 76-year-old male with a past medical history of follicular lymphoma, received second round of chemotherapy. Was started on rituxan. During the course of infusion he developed hypotension and was noted to be orthostatic. Infusion was stopped. He was given intravenous (IV) fluid. He did not respond to 1 liter bolus; therefore, hospitalist was called for admission, and patient was transferred to intensive care unit (ICU). Patient admits to reduced appetite and dehydration with some diarrhea a few weeks ago. His symptoms started while he was receiving infusion at oncology office. Family also reported he had a fever at home of 100.8. HOSPITAL COURSE: On day of admission, patient was resuscitated with IV fluid. Patient was fluid responsive. Initial blood pressure on admission was in the 40s; however, it came back to 90s systolic with the fluid. Patient's blood pressure medications were on hold. Patient was also started on Serax as needed for history of heavy alcohol use. On the next day patient's white count increased; therefore, patient was started on empiric antibiotics; however, it was stopped due to Dr. Howell, patient's laborer marine terminal/oncologist, was convinced this is a drug reaction due to he had a rash that started right after the infusion right after his symptoms started and responded to Benadryl. On the next day, patient developed severe bradycardia overnight; however, patient's blood pressure remained stable; therefore, cardiology was consulted to evaluate the patient. At this point, patient also had some hypertension. Recommended not to continue patient on verapamil and start patient on amlodipine 2.5 mg daily. On the day of discharge patient was feeling better. Blood pressure was stable. Heart rate has improved somewhat, and patient was ready to go home. Discharge back to home. ACTIVITY: As tolerated. DIET: As tolerated. DISCHARGE MEDICATIONS: New medication: - amlodipine 2.5 mg one tablet by mouth daily Stopped medication: - verapamil 240 mg one tablet by mouth daily Continued medication: - aspirin 81 mg one tablet by mouth daily - vitamin D3 at 2000 units one tablet by mouth daily - multivitamin one tablet by mouth daily - sertraline 50 mg one tablet by mouth daily - simvastatin 20 mg one tablet by mouth daily FOLLOWUP: Patient should followup with primary care provider as soon as possible and also followup with Dr. Barr and Dr. Dukes within 1 week. ADDITIONAL INSTRUCTIONS: If patient should feel dizzy or unable to walk, feel like passing out, having palpitations or chest pain, patient should call primary care physician (PCP) or go to the emergency room. Patient has been discussed with attending doctor, Dr. Marquez. My preceptor for this patient encounter was Dr. Alber Marquez. The preceptor was physically present in the building during the encounter and was fully available as needed. All aspects of the patient interview, examination, medical decision making process, and medical care plan development were reviewed and approved by the preceptor. The preceptor is aware and concurs with the plan as stated in the body of this note and will attest to such by his/her co-signature.
--- NOTE | 2016-12-01 23:05 | CR ---
DATE OF CONSULTATION: 11/30/2016 PRIMARY CARE PROVIDER: Dr. Alber Marquez PRIMARY CARE PHYSICIAN: Dr. Nafisa Ritter ONCOLOGIST: Dr. Ashley Howell REASON FOR CONSULTATION: Status post hypotensive episode, status post mild bradycardia. HISTORY OF PRESENT ILLNESS: 76-year-old male who has been previously healthy with a history of hypertension, hyperlipidemia, and prostate cancer for which he was treated with seeding therapy in 2001, rosacea, and history of polycythemia for which he has been getting quarterly blood draws, had been doing well until the month of August when he was found to have a skin lesion of his right shoulder and after treatment by Dr. De La Rosa, biopsy was recommended and patient had biopsy done by Dr. Pate for a submandibular lymph node and he was diagnosed with follicular lymphoma/non-Hodgkin's stage 3. About a month ago, he started chemotherapy with Dr. Ashley Howell, he had received rituximab without any associated reaction. About one month later, on the second treatment, after receiving half of the dose, he started feeling weak, lightheaded with blurry vision. He almost passed out. He was found to be hypotensive and he was brought to the hospital where he was admitted. According to the patient, his systolic blood pressure was about 40 mmHg at one point. He was started on IV fluid and he slowly responded. He has been in intensive care unit (ICU) and he is being monitored. Yesterday, during the night, he was found to be mildly bradycardic with a heart rate reported to be 30 beats per minute, but he was sleeping. It seems that his heart rate remained in the 40s during the night. When I saw Mr. Maninder Vides this evening, he was supine in bed in no acute distress at rest, very pleasant gentleman. While at bedside, his systolic blood pressure was about 143 mmHg and his pulse varied between 60 and 70. He denies any history of chest pain or shortness of breath or palpitations. He has no prior cardiac history. He has no pedal edema, orthopnea, prior episodes of syncope or near syncope. Prior to coming to the hospital, he was on verapamil and he has not been receiving it, he has been taking that medication since 1980s for hypertension. He denies any cough or hemoptysis. He has no nausea, vomiting, diarrhea, melena, or hematemesis. He has no focal manifestation. Since his diagnosis of non-Hodgkin's lymphoma. He has lost about 40 pounds. He denies any bleeding. He has a past medical history positive for hypertension, hyperlipidemia, prostate cancer which was treated with seed implant, yasmeen. There is no history of significant valvular heart disease, cardiomyopathy, or obstructive coronary artery disease, myocardial infarction, cerebrovascular accident (CVA), cardiac arrhythmias, sudden cardiac . There is no history of diabetes mellitus, kidney disease, thyroid disorders. MEDICATIONS PRIOR TO COMING TO THE HOSPITAL: Simvastatin 20 mg by mouth daily, aspirin 81 mg by mouth daily, multivitamin one tablet by mouth daily, Zoloft as recommended, vitamin D 2000 units daily, and verapamil 240 mg by mouth daily. CURRENT MEDICATIONS: Benadryl 25 mg IV every six hours, Lovenox 40 mg subcutaneous daily, simvastatin 20 mg by mouth at bedtime, Tylenol 650 mg every four hours as needed for mild pain or fever, ondansetron 4 mg IV every six hours as needed for nausea or vomiting, artificial tears, Serax 10 mg every four hours as needed for tremors and anxiety, multivitamin one tablet by mouth daily, vitamin D 2000 units by mouth daily, aspirin 81 mg by mouth daily. Past surgical history is positive for recent biopsy of a skin lesion on the right shoulder last August and in 2001, he had seed implant for prostate cancer. SOCIAL HISTORY: Patient is a nonsmoker. He lives with his and they have been together for about 50 years. According to his chart, he has a tall [place] every evening. He has no history of withdrawal symptoms. 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 ALLERGIES: No known drug allergies, but hay fever. ADVANCED DIRECTIVES: Full code. He has a health care proxy. PHYSICAL EXAMINATION: On physical examination, the patient is alert and oriented, in no acute distress at rest and very pleasant. His last blood pressure at eight o'clock this evening was 143/71 with a pulse of 59, respirations 18, and his maximum temperature was 97.9 degrees Fahrenheit with an oxygen saturation of 97% on room air. For 11/29/2016, he had a positive fluid balance of 1.6 liters. HEENT: Atraumatic. NECK: Supple, I could not appreciate any jugular venous distention (JVD) or carotid bruits. LUNGS: Did not reveal any wheezing or crackles. HEART: Examination revealed normal S1-S2 without gallops. The point of maximal impulse (PMI) is not displaced. There is no rub. I could not appreciate any murmurs. ABDOMEN: Soft and nontender. Bowel sounds are active. EXTREMITIES: Revealed no pedal edema. Peripheral pulses, dorsalis pedis were +2 and equal. NEUROLOGIC: Examination was limited, but no focal deficit. LABS: CBC done today revealed a WBC of 6.7, hemoglobin 12.3, hematocrit 38.3, and platelets 110,000. On admission, the CBC revealed a WBC of 12.8, hemoglobin 15.3, hematocrit 47.4, and platelets 153,000. PT on admission was 13.8 with an INR of 1.05 and a PTT of 25.0. PT/INR today, 12/01/2016, were 14.8 and 1.1 respectively with a PTT of 26.9. BMP done today revealed a sodium of 144, potassium 4.3, chloride 111, CO2 24, BUN 18, creatinine 1.13, GFR more than 60, fasting glucose 121, calcium 7.8. Serum magnesium is 2.1. Serum troponin has been negative at less than 0.02. Serum C-reactive protein was 5.5 on 11/29, and 2.37 today, 11/30/2016. Lipid profile done today revealed a total cholesterol of 121, triglycerides 116, LDL 50.8, HDL 47, and total cholesterol/HDL ratio of 2.574. Serum lactic acid yesterday, 11/29/2016, was 1.0 and prior to that earlier in August it was 2.3. Liver enzymes on admission revealed a total bilirubin of 0.7, AST 25, ALT 34, alkaline phosphatase 79, total protein 5.8, albumin 2.7. Thyroid function tests on admission revealed a TSH of 2.41, free T4 2.3, T3 uptake 36, and thyroxine 6.4. BMP on admission, 11/28/2016, revealed a sodium of 145, potassium 3.8, chloride 111, CO2 24, BUN 16, creatinine 1.14, GFR more than 60, fasting glucose 133, and calcium 7.9. Serum magnesium on admission was 1.6 and today serum magnesium is 2.1. Serum parvovirus is pending. EKG on admission, 11/28/2016, at 16:52:05, revealed sinus tachycardia at 107 beats per minute, otherwise unremarkable. There is a Q-wave in lead III. EKG on 11/30/2016, at 01:24:10, revealed sinus bradycardia at 43 beats per minute and minimal repolarization abnormalities, otherwise unremarkable. EKG done on 11/30/2016, at 08:44:22, revealed sinus rhythm at 62 beats per minute and also minimal repolarization abnormalities, otherwise unremarkable. Chest x-ray done on admission, 11/28/2016, revealed no active disease process. IMPRESSION: 1. Status post hypotensive episode. After reviewing Dr. Cornel Howell note, it seems that it was related to a reaction to the chemotherapy he was taking for his non-Hodgkin's lymphoma, the rituximab. This probably was aggravated by the verapamil he was taking, he has been losing weight. He probably does not need all that verapamil. It seems that the immediate plan is to rechallenge him this coming Monday with half of the dose and on that day, he can hold his antihypertensive medications. I plan to restart him on a different medication for his hypertension, amlodipine at a small dose of 2.5 mg by mouth daily for now. He probably will end up having a higher dose. Regarding the mild bradycardia noted last night, it is probably related to some degree of obstructive sleep apnea and the verapamil. We will stay for now from any AV blocking agents. He will be restarted tomorrow if his blood pressure remains the same on amlodipine at 2.5 mg by mouth daily, and he can be discharged on that medication and as mentioned, it can be held on Monday while being rechallenged with the chemotherapy. I will continue to monitor him upon discharge as outpatient. His serum TSH was normal, and we will send a Lyme titer for him while in the hospital. However, I do think that the reaction was secondary to some degree of obstructive sleep apnea and some residual verapamil still in his blood. He might benefit from a sleep study as an outpatient. 2. Hyperlipidemia, under control and this is being addressed. 3. Status post recent diagnosis of stage III follicular/non-Hodgkin's lymphoma and this is being addressed. 4. History of prostate cancer treated with seed therapy in 2001. 5. History of rosacea. 6. Erythematous rash, fading away and it seems that it was thought to be related to the chemotherapy. He is on Benadryl and he is responding. He is being monitored. His oncologist is very aware of that. 7. Thrombocytopenia. If his platelet count continues to go down, I will discontinue the Lovenox and contact hematology. It is probably from the same reaction. 8. Status post hypomagnesemia, now corrected. It was a pleasure to participate in the care of Mr. Maninder Vides for his underlying cardiac condition. I will continue to monitor him along with you while in the hospital and upon discharge. Tomorrow, Dr. Barr will be seeing him and this was discussed with him.
[2016-12-02 00:09] LABS: ANTI PARVO VIRUS LEVEL IGG 7.5 index (0.0-0.8); ANTI PARVO VIRUS LEVEL IgM 0.2 index (0.0-0.8)
== END 2016-12-01 12:26 | disposition home or self-care (01) | DRG 312 ==
LOC: M ICU 16:01 → M PCU 11-30 21:38
PROVIDERS: ADMIT Internal Medicine; ATTEND Internal Medicine
DX: I95.2 Hypotension due to drugs (principal); C82.11 Follicular lymphoma grade II, lymph nodes of head, face, and neck; I10 Essential (primary) hypertension; T45.1X5A Adverse effect of antineoplastic and immunosuppressive drugs, initial encounter; D75.1 Secondary polycythemia; R00.1 Bradycardia, unspecified; T46.1X5A Adverse effect of calcium-channel blockers, initial encounter; R23.3 Spontaneous ecchymoses; E78.5 Hyperlipidemia, unspecified; D69.6 Thrombocytopenia, unspecified; E83.42 Hypomagnesemia; G47.33 Obstructive sleep apnea (adult) (pediatric); Z85.46 Personal history of malignant neoplasm of prostate; Z79.82 Long term (current) use of aspirin; Z79.899 Other long term (current) drug therapy; Z91.013 Allergy to seafood

== ENCOUNTER → 2017-01-11 | Outpatient (CLI) | payer MEDICARE, BC, OTHER ==
[~2017-01-11] MED LIST changes: +AMLO25TA PO; +GASTROGRAFIN SOLUTION 30ML (Q9963) As Ordered ONE; +ISOVUE-370 76% 100ML VIAL (Q9967) As Ordered ONE; +SIMV20TA2 PO; +VITA20008 PO
--- NOTE | 2017-01-11 12:10 | REP ---
REASON: History of non-Hodgkin's lymphoma. Latest prior chest CT for comparison is 12/10/2007. CONTRAST UTILIZED: 100 mL Isovue 370. There is no mediastinal or hilar adenopathy. There are multiple prominent but stable axillary lymph nodes. There are no pleural or pericardial effusions. The imaged osseous structures are within normal limits. Evaluation of the lung webb show an asymmetric density in the posterobasal segment of the right lower lobe which measures 1.7 x 2 cm, increased in size from the prior exam when it measured 0.9 x 1.3 cm. There are no other new or enlarging abnormal nodules, masses, or opacities. IMPRESSION: 1. Enlarging asymmetric density in the right lower lobe as described above. According to the revised Fleischner Society criteria, this lesion represents a category 4B lesion for which PET/CT is recommended at this time with the possibility of tissue sampling depending on the probability of malignancy and comorbidities. 2. Other findings as described above. Signed by Jose Alfredo Silveira DO 01/11/2017 02:43 P
--- NOTE | 2017-01-11 12:21 | REP ---
REASON: History of non-Hodgkin's lymphoma. Latest prior for comparison is 12/10/2007. CONTRAST UTILIZED: 100 mL Isovue 370. The precontrast enhanced portion of the examination shows hepatic and splenic densities to be within normal limits. There is no nephrolithiasis or cholelithiasis. Contrast enhanced portion of the examination shows the liver, gallbladder, spleen, pancreas, adrenal glands, and kidneys to be within normal limits. The abdominal aorta and para-aortic regions are within normal limits. There is no intra-abdominal mass or adenopathy. The bowel loops and their. mesenteries are within normal limits. There is colonic diverticulosis. There is no free fluid or free air. CT PELVIS: The bowel loops and their mesenteries are within normal limits. There is no mass or adenopathy. There is no free fluid or free air. Multiple metallic radiodensities are seen in the prostate gland from previous brachy therapy status quo. There are stable bilateral inguinal lymph nodes. Bone window technique throughout the entire exam shows chronic spinal degenerative changes with bilateral sacroiliac joint degenerative changes. IMPRESSION: No evidence of acute intra-abdominal or intrapelvic disease. Findings as described above. Signed by Jose Alfredo Silveira DO 01/11/2017 02:44 P
== END ==
LOC: M RAD 09:59
PROVIDERS: ATTEND Internal Medicine Medical Oncology
DX: C85.80 Other specified types of non-Hodgkin lymphoma, unspecified site (principal)
CPT/HCPCS: 71260; 74178; Q9963; Q9967

== ENCOUNTER → 2017-02-01 | Outpatient (CLI) | payer MEDICARE, BC, OTHER ==
[~2017-02-01] MED LIST changes: -GASTROGRAFIN SOLUTION 30ML (Q9963) As Ordered ONE; -ISOVUE-370 76% 100ML VIAL (Q9967) As Ordered ONE
--- NOTE | 2017-02-02 08:53 | REP ---
PET/CT: HISTORY: Restaging lymphoma. Stage III A, grade 1 to 2, follicular non-Hodgkin's lymphoma diagnosed October 14, 2016. Status post two cycles of chemotherapy. 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 COMPARISONS: Comparison PET/CT study September 29, 2016. This showed fairly bulky and numerous hypermetabolic adenopathy in the cervical, supraclavicular, chest, abdominal and pelvic node distributions. TECHNIQUE: 50 minutes following the intravenous injection of a 8.1 mCi dose of F-18 FDG, three-dimensional PET scintigraphy is acquired from the skull base to the proximal thighs. Triplanar noncontrast CT scanning is acquired through the same anatomic range for attenuation correction, and image registration with scan parameters optimized to minimize radiation exposure to the patient. PET scintigraphy and CT datasets were fused and displayed on a workstation with multiplanar and projection display capability. PET/CT FINDINGS: Today's PET/CT study is dramatically improved. The previous lymph nodes are all markedly decreased in size when compared with the September 29, 2016 CT study and there is no abnormal hypermetabolic activity on today's PET CT study. There is no abnormal hypermetabolic uptake in or about the skin of the right shoulder or upper back. No pathologically enlarged lymph node is visible here or elsewhere. A 14 mm lymph node was visible in the right posterior subcutaneous fat at the level of the shoulder on the prior PET/CT study. This was hypermetabolic. It is no longer showing any FDG accumulation and has decreased in size to 5 mm. No cervical, axillary, mediastinal, retroperitoneal abdominal or pelvic adenopathy is seen today. There are metallic seeds in the prostate. Colonic diverticulosis is seen. There is some pleuroparenchymal reaction consistent with fibrosis in the right base unchanged from the September 29, 2016 PET/CT study. This does not show FDG accumulation. IMPRESSION: Negative PET scintigraphy. Markedly improved from the prior study. There is no hypermetabolic uptake or evidence of pathologically enlarged lymph node on today's PET/CT study. Signed by Garland Lott MD 02/02/2017 12:53 P
== END ==
LOC: M PLARAD 13:01
PROVIDERS: ATTEND Internal Medicine Medical Oncology
DX: C85.90 Non-Hodgkin lymphoma, unspecified, unspecified site (principal)
CPT/HCPCS: 78815; A9552

== ENCOUNTER → 2017-09-20 | Outpatient (REF) | payer MEDICARE, BC, OTHER ==
[2017-09-20 18:52] LABS: BASO % 0.7 % (0.0-1.0); EOS # 0.1 10^3/uL (0.0-0.50); EOS % 1.7 % (0.0-3.0); IMMATURE GRANULOCYTE % 0.2 % (0-0); LYMPH # 0.8 10^3/uL (1.5-4.5); LYMPH % 19.6 % (24.0-44.0); MEAN CORPUSCULAR HEMOGLOBIN 31.6 pg (27.0-33.0); MEAN CORPUSCULAR HGB CONC 32.8 g/dl (32.0-36.5); MEAN CORPUSCULAR VOLUME 96.3 fl (80.0-96.0); MONO # 0.4 10^3/uL (0.0-0.8); MONO % 10.5 % (0.0-5.0); NEUTROPHILS # 2.7 10^3/uL (1.8-7.7); NEUTROPHILS % 67.3 % (36.0-66.0); PLATELET COUNT, AUTOMATED 252 10^3/uL (150-450); RED CELL DISTRIBUTION WIDTH 14.2 % (11.5-14.5); WHITE BLOOD COUNT 4.1 10^3/uL (4.0-10.0)
[2017-09-20 19:07] LABS: ALBUMIN 4.1 GM/DL (3.2-5.2); ALBUMIN/GLOBULIN RATIO 1.37 (1.00-1.93); ALKALINE PHOSPHATASE 88 U/L (45-117); ALT/SGPT 21 U/L (12-78); ANION GAP 6 MEQ/L (8-16); AST/SGOT 18 U/L (7-37); BILIRUBIN,TOTAL 1.2 MG/DL (0.2-1.0); BLOOD UREA NITROGEN 11 MG/DL (7-18); CALCIUM LEVEL 8.9 MG/DL (8.8-10.2); CARBON DIOXIDE LEVEL 29 MEQ/L (21-32); CHLORIDE LEVEL 111 MEQ/L (98-107); CHOLESTEROL LEVEL 157 MG/DL (<200); CREATININE FOR GFR 1.12 MG/DL (0.70-1.30); GLOMERULAR FILTRATION RATE > 60.0 (>42); GLUCOSE, FASTING 89 MG/DL (83-110); POTASSIUM SERUM 4.5 MEQ/L (3.5-5.1); SODIUM LEVEL 146 MEQ/L (136-145); TOTAL PROTEIN 7.1 GM/DL (6.4-8.2); TRIGLYCERIDES LEVEL 55 MG/DL (<150)
== END ==
LOC: M LAB REF 17:01
DX: M54.9 Dorsalgia, unspecified (principal); C61 Malignant neoplasm of prostate; C82.90 Follicular lymphoma, unspecified, unspecified site; E78.5 Hyperlipidemia, unspecified; I95.9 Hypotension, unspecified; D45 Polycythemia vera
CPT/HCPCS: 80053

== ENCOUNTER → 2018-06-12 | Outpatient (CLI) | payer MEDICARE, BC, OTHER | LOC: M PLARAD 10:19 | DX: C85.90 Non-Hodgkin lymphoma, unspecified, unspecified site (principal); C85.94 Non-Hodgkin lymphoma, unspecified, lymph nodes of axilla and upper limb (principal) | CPT/HCPCS: 78815 ==

== ENCOUNTER → 2018-06-26 | Outpatient (CLI) | payer MEDICARE, BC, OTHER ==
[~2018-06-26] MED LIST changes: -AMLO25TA PO; -ASPI81TA85 PO; +ISOVUE-370 76% 100ML VIAL (Q9967) As Ordered; -MECL25CH PO; -MULTCAP12 PO; -SERT50TA PO; -SIMV20TA2 PO; -SIMV40TA2 PO; -VERA240T16 PO; -VITA-112 PO; -VITA20008 PO
== END ==
LOC: M RAD 08:35
DX: C90.00 Multiple myeloma not having achieved remission (principal); R91.1 Solitary pulmonary nodule; R59.0 Localized enlarged lymph nodes
CPT/HCPCS: Q9967

== ENCOUNTER → 2018-07-25 | Outpatient (CLI) | payer MEDICARE, BC, OTHER ==
[~2018-07-25] MED LIST changes: -ISOVUE-370 76% 100ML VIAL (Q9967) As Ordered; +LIDOCAINE 1% MDV 20ML VIAL As Ordered
== END ==
LOC: M RADPRO 12:10
DX: C85.10 Unspecified B-cell lymphoma, unspecified site (principal); C85.91 Non-Hodgkin lymphoma, unspecified, lymph nodes of head, face, and neck; I10 Essential (primary) hypertension; Z79.82 Long term (current) use of aspirin; Z79.899 Other long term (current) drug therapy; Z91.013 Allergy to seafood; Z85.46 Personal history of malignant neoplasm of prostate
CPT/HCPCS: 10022

== ENCOUNTER → 2018-08-07 | Outpatient (CLI) | payer MEDICARE, BC, OTHER | LOC: M PLARAD 07:38 | DX: Z08 Encounter for follow-up examination after completed treatment for malignant neoplasm (principal); C82.90 Follicular lymphoma, unspecified, unspecified site (principal); C82.91 Follicular lymphoma, unspecified, lymph nodes of head, face, and neck; Z85.46 Personal history of malignant neoplasm of prostate | CPT/HCPCS: 78815 ==

== ENCOUNTER → 2019-01-01 | Outpatient (CLI) | payer MEDICARE, BC, OTHER ==
[~2019-01-01] MED LIST changes: +AMLO25TA PO; +ASPI81TA85 PO; +CENT1TAB2 PO; -LIDOCAINE 1% MDV 20ML VIAL As Ordered; +MECL1CHW PO; +MIRT1TAB PO; +MULTCAP12 PO; +PRAM0.255 PO; +PRAM0.754 PO; +SERT-138 PO; +SERT-141 PO; +SIMV10TA2 PO; +SIMV20TA2 PO; +SIMV40TA2 PO; +VERA240T16 PO; +VITA-112 PO; +VITA200020 PO; +VITA20008 PO
--- NOTE | 2019-01-02 11:55 | REP ---
PET/CT: History: Non-Hodgkins lymphoma. Lymph nodes in multiple sites. Question left parotid or skull recurrence. Comparisons: The patient's most recent PET/CT study is from August 07, 2018. Comparison soft tissue neck CT study June 26, 2018. TECHNIQUE: 64 minutes following the intravenous injection of a 10.3 mCi dose of F-18 FDG, three-dimensional PET scintigraphy is acquired from the skull vertex to the toes. Triplanar noncontrast CT scanning is acquired through the same anatomic range for attenuation correction, and image registration with scan parameters optimized to minimize radiation exposure to the patient. PET scintigraphy and CT datasets were fused and displayed on a workstation with multiplanar and projection display capability. PET/CT Findings: There is evidence of progression. There is a new small scalp nodule superior to the left ear in the left parietal region with maximum standard uptake value 10.41. Bilateral intraparotid mickey uptake is again observed. Maximum standard uptake value in this mickey uptake on the right is 6.82 and that on the left is 6.48. There are small but hypermetabolic lymph nodes in the neck bilaterally. Maximum standard uptake value in this early cervical lymphadenopathy extends up to a left posterior cervical node with a maximum SUV value of 8.25. There is a new right supraclavicular lymph node which is normal in size but hypermetabolic, 3.67 SUV. There is a new focus of hypermetabolic uptake in a 1.5 cm lucency within the manubrium. Maximum standard uptake value 3.74. There is a right axillary lymph node uptake which is not hypermetabolic. There is a ill-defined area of opacity in the right lower lobe which may be atelectasis or infiltrate. Maximum standard uptake value here is 2.65. Impression: There is evidence of progression. Electronically Signed by Garland Lott MD 01/02/2019 05:27 P
== END ==
LOC: M PLARAD 15:17
PROVIDERS: ATTEND Nurse Practitioner Family
DX: C85.98 Non-Hodgkin lymphoma, unspecified, lymph nodes of multiple sites (principal); R91.8 Other nonspecific abnormal finding of lung field; R22.0 Localized swelling, mass and lump, head
CPT/HCPCS: 78816; A9552

== ENCOUNTER → 2019-05-21 | Outpatient (REF) | payer MEDICARE, OTHER ==
[~2019-05-21] MED LIST changes: +ONDA8TAB7 PO; +PRED10TA2 PO; +PRED20TA PO; +REVL10CA2 PO; +REVL25CA PO; +XARE20TA PO; +ZOFR4TAB16 PO
[2019-05-21 11:37] LABS: BASO % 0.8 % (0.0-1.0); EOS # 0.4 10^3/uL (0.0-0.50); EOS % 9.1 % (0.0-3.0); HEMATOCRIT 46.3 % (42.0-52.0); HEMOGLOBIN 15.2 g/dl (13.5-17.5); LYMPH # 0.7 10^3/uL (1.5-4.5); LYMPH % 18.2 % (24.0-44.0); MEAN CORPUSCULAR HEMOGLOBIN 30.7 pg (27.0-33.0); MEAN CORPUSCULAR HGB CONC 32.8 g/dl (32.0-36.5); MEAN CORPUSCULAR VOLUME 93.5 fl (80.0-96.0); MONO # 0.5 10^3/uL (0.0-0.8); MONO % 13.8 % (0.0-5.0); NEUTROPHILS # 2.2 10^3/uL (1.8-7.7); NEUTROPHILS % 57.8 % (36.0-66.0); PLATELET COUNT, AUTOMATED 229 10^3/uL (150-450); RED BLOOD COUNT 4.95 10^6/uL (4.30-6.10); WHITE BLOOD COUNT 3.8 10^3/uL (4.0-10.0)
[2019-05-21 11:43] LABS: ALBUMIN 3.5 GM/DL (3.2-5.2); BILIRUBIN,TOTAL 0.8 MG/DL (0.2-1.0); CALCIUM LEVEL 8.9 MG/DL (8.8-10.2); CREATININE FOR GFR 1.25 MG/DL (0.70-1.30); GLOMERULAR FILTRATION RATE 59.2 (>35); POTASSIUM SERUM 4.2 MEQ/L (3.5-5.1); TOTAL PROTEIN 5.9 GM/DL (6.4-8.2)
== END ==
LOC: M LABDRAWC 11:23
PROVIDERS: ATTEND Nurse Practitioner Family
DX: C82.20 Follicular lymphoma grade III, unspecified, unspecified site (principal)

== ENCOUNTER → 2019-05-28 | Outpatient (CLI) | payer MEDICARE, BC, OTHER ==
--- NOTE | 2019-05-28 11:31 | REP ---
PET/CT: HISTORY: Restaging recurrent follicular non-Hodgkin's lymphoma. Remote prior history of prostate carcinoma. COMPARISONS: Comparison PET/CT study dated January 01, 2019. TECHNIQUE: 51 minutes following the intravenous injection of a 9.0 mCi dose of F-18 FDG, three-dimensional PET scintigraphy is acquired from the skull base to the proximal thighs. Triplanar noncontrast CT scanning is acquired through the same anatomic range for attenuation correction, and image registration with scan parameters optimized to minimize radiation exposure to the patient. PET scintigraphy and CT datasets were fused and displayed on a workstation with multiplanar and projection display capability. PET/CT FINDINGS: The left parietal scalp lesion seen previously is not included in the imaging field of view of today's study. There is hypermetabolic uptake in intraparotid lymph nodes bilaterally maximum standard uptake value ranging from 2.88 to 5.37. There are left neck and right supraclavicular normal-sized lymph nodes are slightly hypermetabolic, maximum standard uptake value 2.83 and 2.66 respectively. The previously noted lesion in the manubrium is again now hypermetabolic 3.96 SUV. This is similar to the prior study. There is a hypermetabolic small right axillary lymph node maximum standard uptake value 2.50. There is a zone of discoid atelectasis in the right lower lobe. This is unchanged from the prior study. There is intravenous injection artifact in the left axilla. IMPRESSION: Findings appear to be essentially unchanged from the most recent prior study of January 01, 2019. The left parietal scalp nodule noted previously is not included in the imaging field of view on today's examination. Electronically Signed by Garland Lott MD 05/28/2019 01:44 P
== END ==
LOC: M PLARAD 07:40
PROVIDERS: ATTEND Internal Medicine Medical Oncology
DX: C82.98 Follicular lymphoma, unspecified, lymph nodes of multiple sites (principal)
CPT/HCPCS: 78815; A9552

== ENCOUNTER → 2019-11-14 | Outpatient (REF) | payer MEDICARE, OTHER ==
[~2019-11-14] MED LIST changes: +ACYC400T PO; +BACT800T5 PO; +D32000TA PO; +ONDA8TAB10 PO; -ONDA8TAB7 PO; -SIMV10TA2 PO; +SIMV10TA21 PO; -SIMV20TA2 PO; +SIMV20TA22 PO; -SIMV40TA2 PO; +SIMV40TA20 PO
[2019-11-14 12:25] LABS: BASO % 0.8 % (0.0-1.0); EOS # 0.2 10^3/uL (0.0-0.5); EOS % 3.8 % (0.0-3.0); HEMATOCRIT 47.7 % (42.0-52.0); HEMOGLOBIN 16.1 g/dl (13.5-17.5); LYMPH # 1.1 10^3/uL (1.5-5.0); LYMPH % 27.7 % (24.0-44.0); MEAN CORPUSCULAR HEMOGLOBIN 34.1 pg (27.0-33.0); MEAN CORPUSCULAR HGB CONC 33.8 g/dl (32.0-36.5); MEAN CORPUSCULAR VOLUME 101.1 fl (80.0-96.0); MONO # 0.4 10^3/uL (0.0-0.8); NEUTROPHILS # 2.2 10^3/uL (1.5-8.5); NEUTROPHILS % 56.4 % (36.0-66.0); PLATELET COUNT, AUTOMATED 188 10^3/uL (150-450); RED BLOOD COUNT 4.72 10^6/uL (4.30-6.10); WHITE BLOOD COUNT 3.9 10^3/uL (4.0-10.0)
== END ==
LOC: M LABDRAWC 11:23
PROVIDERS: ATTEND Internal Medicine Medical Oncology
DX: C82.51 Diffuse follicle center lymphoma, lymph nodes of head, face, and neck (principal)

== ENCOUNTER → 2019-12-27 | Outpatient (REF) | payer MEDICARE, OTHER ==
[2019-12-27 11:54] LABS: EOS # 0.1 10^3/uL (0.0-0.5); EOS % 2.9 % (0.0-3.0); HEMATOCRIT 49.5 % (42.0-52.0); HEMOGLOBIN 16.6 g/dl (13.5-17.5); LYMPH # 1.2 10^3/uL (1.5-5.0); LYMPH % 31.2 % (24.0-44.0); MEAN CORPUSCULAR HEMOGLOBIN 33.3 pg (27.0-33.0); MEAN CORPUSCULAR HGB CONC 33.5 g/dl (32.0-36.5); MEAN CORPUSCULAR VOLUME 99.2 fl (80.0-96.0); MONO # 0.4 10^3/uL (0.0-0.8); MONO % 10.9 % (0.0-5.0); NEUTROPHILS # 2.1 10^3/uL (1.5-8.5); NEUTROPHILS % 53.7 % (36.0-66.0); PLATELET COUNT, AUTOMATED 205 10^3/uL (150-450); RED BLOOD COUNT 4.99 10^6/uL (4.30-6.10); WHITE BLOOD COUNT 3.9 10^3/uL (4.0-10.0)
[2019-12-27 12:12] LABS: ALBUMIN 3.9 GM/DL (3.2-5.2); ALT/SGPT 20 U/L (12-78); BLOOD UREA NITROGEN 12 MG/DL (7-18); CARBON DIOXIDE LEVEL 30 MEQ/L (21-32); CHLORIDE LEVEL 109 MEQ/L (98-107); CREATININE FOR GFR 1.19 MG/DL (0.70-1.30); GLOMERULAR FILTRATION RATE > 60.0 (>35); GLUCOSE, FASTING 96 MG/DL (70-100); LDH LACTATE DEHYDROGENASE 168 U/L (87-241); POTASSIUM SERUM 4.3 MEQ/L (3.5-5.1); SODIUM LEVEL 144 MEQ/L (136-145); TOTAL PROTEIN 6.8 GM/DL (6.4-8.2)
== END ==
LOC: M LABDRAWC 09:49
PROVIDERS: ATTEND Internal Medicine Medical Oncology
DX: C82.90 Follicular lymphoma, unspecified, unspecified site (principal)

== ENCOUNTER → 2020-03-05 | Outpatient (REF) | payer MEDICARE, OTHER ==
[~2020-03-05] MED LIST changes: +AMLO10TA5 PO; +CYCL1CAP2 PO; +VITA1CHW7 PO
== END ==
LOC: M LAB REF 15:25
PROVIDERS: ATTEND Surgery
DX: R22.0 Localized swelling, mass and lump, head (principal)

== ENCOUNTER → 2020-05-01 | Outpatient (REF) | payer MEDICARE, OTHER ==
[~2020-05-01] MED LIST changes: -AMLO10TA5 PO; +AMLO1TAB25 PO; +ASPI81CH33 PO; -ASPI81TA85 PO; +ASPI81TA86 PO; +PEPC1TAB5 PO; +PROC10TA4 PO
[2020-06-03 10:29] LABS: BASO % 0.9 % (0.0-1.0); EOS # 0.1 10^3/uL (0.0-0.5); HEMATOCRIT 49.6 % (42.0-52.0); HEMOGLOBIN 16.6 g/dl (13.5-17.5); LYMPH # 0.8 10^3/uL (1.5-5.0); LYMPH % 23.9 % (24.0-44.0); MEAN CORPUSCULAR HEMOGLOBIN 32.9 pg (27.0-33.0); MEAN CORPUSCULAR HGB CONC 33.5 g/dl (32.0-36.5); MEAN CORPUSCULAR VOLUME 98.4 fl (80.0-96.0); MONO # 0.4 10^3/uL (0.0-0.8); MONO % 11.5 % (0.0-5.0); NEUTROPHILS # 2.1 10^3/uL (1.5-8.5); NEUTROPHILS % 61.7 % (36.0-66.0); PLATELET COUNT, AUTOMATED 198 10^3/uL (150-450); RED BLOOD COUNT 5.04 10^6/uL (4.30-6.10); WHITE BLOOD COUNT 3.5 10^3/uL (4.0-10.0)
[2020-06-15 10:43] LABS: ALBUMIN 3.7 GM/DL (3.2-5.2); ALT/SGPT 24 U/L (12-78); BILIRUBIN,TOTAL 0.6 MG/DL (0.2-1.0); BLOOD UREA NITROGEN 16 MG/DL (7-18); CALCIUM LEVEL 9.2 MG/DL (8.8-10.2); CARBON DIOXIDE LEVEL 32 MEQ/L (21-32); CHLORIDE LEVEL 110 MEQ/L (98-107); CREATININE FOR GFR 1.12 MG/DL (0.70-1.30); GLOMERULAR FILTRATION RATE > 60.0 (>35); GLUCOSE, FASTING 88 MG/DL (70-100); LDH LACTATE DEHYDROGENASE 149 U/L (87-241); SODIUM LEVEL 146 MEQ/L (136-145); TOTAL PROTEIN 6.2 GM/DL (6.4-8.2)
== END ==
LOC: M LABDRAWC 16:18
PROVIDERS: ATTEND Internal Medicine Medical Oncology
DX: C82.90 Follicular lymphoma, unspecified, unspecified site (principal)

== ENCOUNTER → 2020-06-08 | Outpatient (CLI) | payer MEDICARE, BC, OTHER ==
[~2020-06-08] MED LIST changes: +GASTROGRAFIN SOLUTION 30ML (Q9963) As Ordered ONE; +ISOVUE-370 76% 100ML VIAL As Ordered ONE
--- NOTE | 2020-06-25 11:45 | REP ---
CONTRAST ENHANCED CHEST CT CLINICAL: History of non-Hodgkin's lymphoma. TECHNIQUE: Axial contrast enhanced images from the thoracic inlet to the upper abdomen with coronal and sagittal reformations using 100 mL Isovue-370 intravenous contrast material followed by CT of the abdomen and pelvis. COMPARISON: 02/13/2020. 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 No new consolidation, significant nodule, or mass lesion is appreciated. The chronic area of rounded atelectasis at the right base is again noted and unchanged, along with minimal fibroatelectatic changes. No effusion. No pneumothorax. Tracheobronchial tree is patent. Small hiatal hernia is identified. Further evaluation of the mediastinum demonstrates a relatively normal thoracic aorta, pulmonary vasculature, and heart/pericardium with mild atherosclerotic changes noted. No aortic aneurysm or dissection. No cardiomegaly. No pericardial effusion. No evidence for hilar or mediastinal adenopathy. Few enhancing right axillary lymph nodes are again identified and unchanged measuring up to 12 mm short axis diameter (Image 23). Surrounding musculoskeletal structures are intact and without acute focal osseous abnormality. IMPRESSION: * The previously noted right axillary lymph node is unchanged in appearance. No further mediastinal, hilar, or axillary adenopathy noted. * Lung webb demonstrate stable chronic changes including fibroatelectatic changes and chronic rounded atelectasis. * Small hiatal hernia. MTDD
--- NOTE | 2020-06-25 11:46 | REP ---
CONTRAST ENHANCED CT OF THE ABDOMEN AND PELVIS: 06/08/20 CLINICAL: History of non-Hodgkins lymphoma. TECHNIQUE: Axial contrast enhanced images from the lung bases to the pubic symphysis using oral and 100cc Isovue 370 intravenous contrast material with delayed images of the abdomen as well as coronal and sagittal reformations. COMPARISON: 01/11/17. FINDINGS: Liver, spleen, pancreas, gallbladder, bilateral adrenal glands are essentially normal. The liver demonstrates a few small sub centimeter hypodensities which are too small to characterizes and likely represent benign cysts. The kidneys demonstrate few scattered hypodensities which are too small to characterize likely representing small renal cysts. The enteric system is without obstruction or acute inflammatory process. A small hiatal hernia is identified along with scattered sigmoid diverticulosis. The pelvis demonstrates a normal bladder and evidence for prior prostate surgery. No pelvic fluid or ascites. No free air. No intraperitoneal or retroperitoneal adenopathy. NO mass lesion. Atherosclerotic changes to the aorta and vasculature noted without aneurysm or dissection. Musculoskeletal structures demonstrate degenerative changes without acute osseous abnormality. IMPRESSION: 1. No evidence for intraabdominal mass lesion or adenopathy. No ascites. 2. Colonic diverticula without acute diverticulitis. 3. Further non-acute findings as described above. MTDD
== END ==
LOC: M RAD 09:02
PROVIDERS: ATTEND Internal Medicine Medical Oncology
DX: C85.90 Non-Hodgkin lymphoma, unspecified, unspecified site (principal)
CPT/HCPCS: 71260; 74177; Q9963; Q9967

== ENCOUNTER → 2020-07-10 | Outpatient (CLI) | payer MEDICARE, BC, OTHER ==
[~2020-07-10] MED LIST changes: -GASTROGRAFIN SOLUTION 30ML (Q9963) As Ordered ONE
--- NOTE | 2020-07-10 11:27 | REPVR ---
PROCEDURE INFORMATION: Exam: CT Neck With Contrast Exam date and time: 07/10/2020 8:19 AM Age: 79 years old Clinical indication: Condition or disease; Other: Lymphoma TECHNIQUE: Imaging protocol: Computed tomography images of the neck with intravenous contrast. Radiation optimization: All CT scans at this facility use at least one of these dose optimization techniques: automated exposure control; mA and/or kV adjustment per patient size (includes targeted exams where dose is matched to clinical indication); or iterative reconstruction. Contrast material: ISOVUE 370; Contrast volume: 75 ml; Contrast route: INTRAVENOUS (IV); COMPARISON: CT Neck with contrast 02/13/2020 9:34 AM FINDINGS: Nasopharynx: Unremarkable. Oropharynx: Unremarkable. No significant tonsillar enlargement. Hypopharynx: Unremarkable. Larynx: Unremarkable. Normal epiglottis. Retropharyngeal space: Unremarkable. Submandibular/Parotid glands: See "Soft tissues" finding. Thyroid: Normal. No enlarged or calcified nodules. Lymph nodes: Pathologic lymphadenopathy is again noted. A 2.1 cm solid mass in the right parotid gland may represent an enlarged lymph node. This appears similar to the prior exam. At least 2 solid masses or enlarged lymph nodes in the left parotid gland are also similar to the prior exam. The lesion in the anterior aspect of the left parotid measures approximately 11 mm in maximum AP diameter. The lesion in the posterior left parotid gland measures 18 mm in AP diameter (previously 20 mm). A left posterior triangle lymph node in the upper neck measures approximately 4.6 x 2.4 x 1.3 cm (previously 4.5 x 2.2 x 1.1 cm). Numerous small and mildly enlarged bilateral cervical chain lymph nodes are present. A right submandibular lymph node, just anterior to the right submandibular gland has decreased in size, currently measuring approximately 2.0 x 1.0 x 0.7 cm (previously 2.5 x 1.6 x 1.6 cm). Small and mildly enlarged bilateral supraclavicular lymph nodes are present, more pronounced on the right. The largest node in the right supraclavicular region has slightly decreased in size. There are small bilateral retropectoral and axillary lymph nodes. Trachea: Visualized trachea is unremarkable. Lungs: Unremarkable as visualized. Bones/joints: Moderate degenerative changes of the cervical spine are present. Soft tissues: Again noted is a partially visualized subcutaneous mass in the left temporal scalp, just above the left ear. This measures 2.8 cm in AP diameter (previously 2.4 cm). IMPRESSION: Persistent pathologic lymphadenopathy, compatible with the history of lymphoma. Electronically signed by: Richi Gutiérrez On 07/10/2020 11:27:37 AM
== END ==
LOC: M RAD 08:00
PROVIDERS: ATTEND Internal Medicine Medical Oncology
DX: C85.91 Non-Hodgkin lymphoma, unspecified, lymph nodes of head, face, and neck (principal)
CPT/HCPCS: 70491; Q9967

== ENCOUNTER → 2020-10-08 | Outpatient (CLI) | payer MEDICARE, BC, OTHER ==
[~2020-10-08] MED LIST changes: -ISOVUE-370 76% 100ML VIAL As Ordered ONE; +MECL-86 PO
--- NOTE | 2020-10-08 11:37 | RADONC.CN ---
Radiation Oncology Hx/Consult Radiation Oncology Consult Date of Service: Oct 08, 2020 Pt Identifier Maninder Vides is a 80 year old male with a history of stage IV follicular lymphoma grade 1, who presents today for consideration of palliative RT to a left temporal scalp lesion and an enlarged right pre-auricular node. Diagnosis/Treatment History Oncologic History Diagnosed in 2016 with [place] grade 1, imaging consistent with stage IV disease (NB 09/29/16 PET-CT). No BLC2 rearrangement. He received BR for 1.5 cycles, had a reaction to rituximab infusion and was admitted. Had initial CR. Experienced progression in cervical nodes on January 2020 scans. Complained of progression of a left scalp mass which was biopsied in February 2020 and showed some large cell features. 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 He received cyclophosphamide which was poorly tolerated. Interval History Here with his supportive daughter. He has no pain or facial weakness. He has no dry mouth. The lesions in the right preauricular and left temporal regions are growing steadily per his assessment. He has no fevers, night sweats or weight loss. He is fully functional at home. Drives, no fatigue. Not on active treatment with systemic therapy. Past Medical History: [place] Prostate cancer s/p LDR brachytherapy SCC of skin Past Surgical History: None Family History: No family history of cancer Social History: Never smoker Drinks on occasion, no alcohol abuse Allergies / Meds Allergies: Coded Allergies: shellfish derived (Verified Allergy, Intermediate, hives, 12/27/18) Home Meds Reported Medications Meclizine HCl (Meclizine HCl) 25 Mg Tablet, 25 MG PO BID for dizziness for 30 Days, #90 TAB 10/08/20 Aspirin (Aspirin) 81 Mg Tab.chew, 1 TAB PO DAILY for pain for 30 Days, #30 TAB 07/08/20 Cholecalciferol (Vitamin D3) (Vitamin D3) 2,000 Unit Tab.chew, 2000 UNIT PO DAILY 01/01/20 Amlodipine Besylate (Amlodipine Besylate) 10 Mg Tablet, 10 MG PO QAM 01/01/20 Pramipexole Di-HCl (Pramipexole Dihydrochloride) 0.75 Mg Tablet, 0.25 MG PO TID for 30 Days, #30 TAB 01/08/19 Multivit-Mins/Iron/Folic/Lycop (Centrum Men's Tablet) 1 Each Tablet, 1 TAB PO DAILY for 30 Days, #30 TAB 01/08/19 Sertraline HCl (Sertraline HCl) 100 Mg Tab, 200 MG PO DAILY, TAB 06/28/18 Mirtazapine (Mirtazapine) 7.5 Mg Tab, 15 MG PO QPM for 30 Days, #30 TAB 06/20/18 Discontinued Scripts Prochlorperazine Maleate (Prochlorperazine Maleate) 10 Mg Tablet, 10 MG PO Q6H PRN for NAUSEA, #60 TAB 1 Refill Prov:MARIA E FARMER MD 04/08/20 Famotidine (Pepcid) 20 Mg Tablet, 20 MG PO DAILY, #30 TAB 1 Refill Prov:MARIA E FARMER MD 04/08/20 Ondansetron HCl (Zofran) 4 Mg Tablet, 4 MG PO Q8HP PRN for NAUSEA for 10 Days, #30 TAB 1 Refill Prov:Lillie Robbins 03/06/19 Review of Systems Constitutional: Denies: Chills, Fever, Night Sweats Eyes: Denies: Pain, Vision change HEENT: Reports: Other Symptoms (Right ear fullness); Denies: Head Aches, Dysphagia, Sore Throat Skin: Denies: Rash, Lesions, Bruising Pulmonary: Denies: Dyspnea, Cough Cardiovascular: Denies: Chest Pain, Palpitations, Edema Gastrointestinal: Denies: Nausea, Vomiting, Abdominal Pain, Diarrhea Genitourinary: Denies: Dysuria, Frequency, Incontinence Hematologic: Denies: Bruising, Petecchia, Enlarged Lymph Nodes Musculoskeletal: Denies: Neck pain, Back pain Neurological: Denies: Weakness, Numbness, Incoordination Psych: Reports: Mood Normal; Denies: Memory Issues, Thoughts of Self Harm Vital Signs Ht 71" Wt 171 lb BMI 23 T 97.6 P 109 RR 16 BP 131/80 O2 99% Pain 0 Fatigue 0 General Exam: Positive: Alert, Cooperative, No Acute Distress Eye Exam: Positive: PERRLA, EOMI ENT EXAM: Positive: Mucous membr. moist/pink, Pharynx Normal, Tongue Midline Neck Exam: Positive: Lymphadenopathy (There are palpable left level II/III nodes which are soft and mobile. There is a firm nodular lesion in the right preauricular space. On the left temporal scalp directly above the pinna there is a ~3.5 cm diameter violaceous nodule which is firm and mobile. There is no ulceration or associated tenderness. ); Negative: Thyromegaly Chest Exam: Positive: Normal air movement; Negative: Rales, Rhonchi, Wheezing Heart Exam: Positive: Rate Normal, Regular Rhythm Abdomen Exam: Positive: Soft; Negative: Tenderness, Hepatospenomegaly, Mass Extremity Exam: Negative: Edema, Tenderness Neuro Exam: Positive: Normal Gait, Normal Speech, Cranial Nerves 3-12 NL Psych Exam: Positive: Mental status NL, Mood NL, Memory Intact Diagnostic and Laboratory Diagnostic Review Radiologic images, relevant labs and pathology reports were personally reviewed and discussed with Mr. Vides. Assessment and Plan Impression Mr. Vides is a 80 year old male with a history of stage IV follicular lymphoma grade 1, who presents today for consideration of palliative RT to a left temporal scalp lesion and an enlarged right pre-auricular node. Stage Follicular lymphoma stage IV grade 1 Performance Status ECOG 0 Plan We had an extensive discussion with Mr. Vides regarding the diagnosis at hand and available therapeutic options. He is fit, has minimal complaints or medical problems outside of the [place]. He does not wish to pursue systemic therapy at this time. He had poor tolerance of prior lines of treatment. On exam and review of recent imaging he has multifocal disease in the head and neck region. Most bothersome is the left temporal scalp lesion which is growing and has some features of higher grade disease. He has BL intraparotid nodes R>L and multiple smaller cervical nodes. We discussed palliative RT to the left temporal and right parotid lesions. I would treat with electrons and bolus to a dose of 24 Gy in 12 fractions which should induce durable local control (as opposed to a very low dose regimen of 4 Gy in 2 fractions, which carries a higher rate of needing retreatment, and in my view would not be appropriate for a higher grade lesion like the temporal scalp lesion). He will tolerate this well with mild skin reaction and transient xerostomia as the only likely side effects. If other foci in the HN region grow or become bothersome, then limited electron webb will facilitate ease of additional treatments. We discussed the logistics of receiving radiation therapy in detail including the need for a 1-time planning session. After discussing the risks, benefits and alternatives to radiation therapy, Mr. Vides was amenable to pursuing radiotherapy. All questions were answered to the patient's satisfaction. We instructed the patient that if there were any questions,concerns or changes in clinical status in the interim to contact us. Recommendations Palliative RT to the left temporal scalp and right intraparotid lesions 24 Gy in 12 fractions with electrons and bolus Simulation in the coming week JESSICA LOPEZ MD Oct 08, 2020 11:37
== END ==
LOC: M ONCR 09:52
PROVIDERS: ATTEND General Practice
DX: C82.01 Follicular lymphoma grade I, lymph nodes of head, face, and neck (principal)

== ENCOUNTER 2020-10-13 09:48 | Outpatient (RCR) | payer MEDICARE, BC, OTHER | END 2020-10-25 | LOC: M ONCR 09:48 | PROVIDERS: ATTEND General Practice | DX: C82.01 Follicular lymphoma grade I, lymph nodes of head, face, and neck (principal) ==

== ENCOUNTER 2020-11-11 14:22 | Outpatient (RCR) | payer MEDICARE, BC, OTHER ==
[~2020-11-11 14:22] MED LIST changes: +D31000TA2 PO; +ZOLO100T PO
== END 2020-11-22 ==
LOC: M ONCR 14:22
PROVIDERS: ATTEND General Practice
DX: C82.01 Follicular lymphoma grade I, lymph nodes of head, face, and neck (principal)

== ENCOUNTER → 2020-12-07 | Outpatient (CLI) | payer MEDICARE, BC, OTHER ==
[~2020-12-07] MED LIST changes: +GASTROGRAFIN SOLUTION 30ML (Q9963) As Ordered ONE; +ISOVUE-370 76% 100ML VIAL As Ordered ONE
--- NOTE | 2020-12-07 11:29 | REPVR ---
PROCEDURE INFORMATION: Exam: CT Neck With Contrast Exam date and time: 12/07/2020 11:02 AM Age: 80 years old Clinical indication: Condition or disease; Cancer; Other: Lymph; Additional info: Lymphoma TECHNIQUE: Imaging protocol: Computed tomography images of the neck with intravenous contrast. Radiation optimization: All CT scans at this facility use at least one of these dose optimization techniques: automated exposure control; mA and/or kV adjustment per patient size (includes targeted exams where dose is matched to clinical indication); or iterative reconstruction. Contrast material: ISOVUE 370; Contrast volume: 100 ml; Contrast route: INTRAVENOUS (IV); COMPARISON: CT Neck with contrast 07/10/2020 8:28 AM FINDINGS: Nasopharynx: Unremarkable. Oropharynx: Unremarkable. No significant tonsillar enlargement. Hypopharynx: Unremarkable. Larynx: Unremarkable. Normal epiglottis. Retropharyngeal space: Unremarkable. Submandibular/Parotid glands: Normal. Glands are normal in size. Thyroid: Normal. No enlarged or calcified nodules. Lymph nodes: 1.6 cm right intraparotid lymph node has decreased in size as compared to preceding examination, at which time it measured 2.1 cm in diameter. At least 2 left intraparotid lymph nodes measuring up to 9 mm in diameter have decreased in size as well. Lymph node abutting the posterior margin of the left parotid gland is decreased in size, measuring 1.4 cm in diameter versus is 1.8 cm previously. Left posterior triangle lymph node/cluster of lymph nodes is unchanged. There are additional small, scattered cervical lymph nodes. Trachea: Visualized trachea is unremarkable. Lungs: Unremarkable as visualized. Bones/joints: Unremarkable. No acute fracture. Soft tissues: Unremarkable. No significant soft tissue swelling. IMPRESSION: Overall pattern of decreased lymphadenopathy as compared to preceding examination. Electronically signed by: Tracy Marin On 12/07/2020 11:29:53 AM
--- NOTE | 2020-12-07 11:33 | REP ---
INDICATION: LYMPHOMA. COMPARISON: None. Chest CT with IV contrast dated 02/13/[address] with IV contrast dated 06/08/2020. TECHNIQUE: Chest CT with IV contrast. FINDINGS: There is an enlarged right axillary lymph node measuring 11 mm short axis, unchanged from both prior studies. There are a few other normal size axillary lymph nodes bilaterally, also unchanged. There is no mediastinal lymph node enlargement. There is no hilar lymph node enlargement. This is unchanged. There are no infiltrates or pleural effusions. There is a pleural based 12 mm lung nodule in the deep posterior sulcus of the right lower lobe, unchanged from the prior studies. No other lung nodules or masses are identified. Thoracic aorta is unremarkable. Cardiac size is normal. There is no pericardial effusion. There are few tiny, less than 1 cm, hypodensities in the dome of the liver, unchanged, nonspecific, but likely small hepatic cysts or possibly tiny hemangiomas IMPRESSION: . there is no change from the prior studies. There is an enlarged right axillary lymph node that is unchanged in size. There are a few other normal size axillary nodes bilaterally that are also unchanged. There is a pleural base nodule in the deep posterior sulcus of the right lower lobe, unchanged. There are a few small stable hypodensities in the dome of the liver, unchanged, nonspecific but likely cysts or tiny hemangiomas. <Electronically signed by Neil Doll > 12/07/20 [id number]
--- NOTE | 2020-12-07 11:52 | REP ---
INDICATION: LYMPHOMA. COMPARISON: None. CT of the abdomen and pelvis with IV the and bowel contrast dated 06/08/[address] of the abdomen and pelvis with IV and bowel contrast dated 01/11/2017. TECHNIQUE: CT of the abdomen and pelvis with IV and bowel contrast. FINDINGS: There is no periaortic, mesenteric or pelvic lymph node enlargement. This is unchanged from the prior studies. No ascites. This is unchanged. The liver and spleen are normal size and homogeneous except for a few nonspecific less than 1 cm hypodensities in the dome of the liver. These are unchanged from both prior studies and are likely small hepatic cysts or possibly hemangiomas. The gallbladder, pancreas and adrenals are unremarkable. The kidneys are unremarkable except for diffuse bilateral mild renal cortical thinning. This is unchanged from the prior studies. There is no hydronephrosis. No renal masses or cysts are identified. The bowel and mesentery are unremarkable except for a few scattered sigmoid colon diverticula without CT evidence of diverticulitis. This is unchanged. Pelvis: There are multiple prostate iridium radiotherapy seeds. This is unchanged. There is no pelvic ascites or adenopathy. There are no lytic, blastic or destructive skeletal changes. IMPRESSION: There is no abdominal or pelvic adenopathy or ascites. There are several tiny, less than 1 cm con hypodensities in the dome of the liver, unchanged, likely small cysts or hemangiomas. There are a iridium seeds in the prostate, unchanged. There are no lytic, blastic or destructive skeletal findings. No change from the prior studies. <Electronically signed by Neil Doll > 12/07/20 [id number]
== END ==
LOC: M RAD 09:15
PROVIDERS: ATTEND Internal Medicine Medical Oncology
DX: C82.00 Follicular lymphoma grade I, unspecified site (principal); R59.9 Enlarged lymph nodes, unspecified
CPT/HCPCS: 70491; 71260; 74177; Q9963; Q9967

== ENCOUNTER → 2020-12-10 | Outpatient (CLI) | payer MEDICARE, BC, OTHER ==
[~2020-12-10] MED LIST changes: +ACYC1TAB PO; -ACYC400T PO; -GASTROGRAFIN SOLUTION 30ML (Q9963) As Ordered ONE; -ISOVUE-370 76% 100ML VIAL As Ordered ONE
--- NOTE | 2020-12-10 10:48 | RADENCPD ---
Date/Time of Encounter Date of Encounter: Dec 10, 2020 Time of Encounter: 10:42 Encounter Maninder came in for a brief follow up today to assess the early results of the RT to his left temporal and right parotid [place] lesions. He completed treatment 24 Gy in 12 fractions on 11/11/20. He reports he feels well, no skin complaints, but does feel like his right ear is plugged since RT. No xerostomia. On exam there has been some regression of the left temporal scalp lesion, it is less prominent than prior to RT and soft/mobile. In particular the posterior aspect of the roughly circular lesion has flattened. There is overlying alopecia and hyperemic skin as before. No surrounding RT dermatitis. The right parotid is symmetric on palpation compared to the left, there is no remaining nodularity. There is no skin reaction overlying. Assessment: Regression of both treated lesions. I explained that the latent effects of RT can manifest over several months post- treatment, so the hope and possibility of CR remains. He will see Dr. Tarango again in 3 months time, therefore I will schedule another follow up with him the same day. Plan: 3 month follow up. JESSICA LOPEZ MD Dec 10, 2020 10:48
== END ==
LOC: M ONCR 08:28
PROVIDERS: ATTEND General Practice
DX: C82.01 Follicular lymphoma grade I, lymph nodes of head, face, and neck (principal)

== ENCOUNTER → 2021-03-11 | Outpatient (CLI) | payer MEDICARE, BC, OTHER ==
--- NOTE | 2021-03-11 10:35 | RADONC ---
Radiation Oncology Hx/FUP Radiation Oncology Hx/FUP Date of Service: Mar 11, 2021 Pt Identifier Maninder Vides is a 80 year old male seen for a followup visit today at the department of radiation oncology for a history of stage IV grade I follicular lymphoma with symptomatic lesions of the left temporal scalp as well as right pre-auricular intraparotid node for which he underwent palliative RT 24 Gy in 12 fractions completed on 11/11/20. 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 No BLC2 rearrangement. He received BR for 1.5 cycles, had a reaction to rituximab infusion and was admitted. Had initial CR. Experienced progression in cervical nodes on January 2020 scans. Complained of progression of a left scalp mass which was biopsied in February 2020 and showed some large cell features. 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 He received cyclophosphamide which was poorly tolerated. 10/26/20-11/11/20 Palliative RT 24 Gy in 12 fractions with electrons to left temporal scalp and right pre-auricular intraparotid lesions. Interval History Maninder is here with his supportive daughter. He feels well. He had some fullness in the right ear s/p RT which has resolved. He still has ringing in the ears BL which is chronic. He notes the left scalp lesion has regressed and is no longer visible. He points out some growth in a right level II cervical node, which is not bothersome. 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 He has a history of pre-cancers as well as small SCC of skin. He would like a referral to derm here locally as no one has filled the practice in [place]. Current Therapy Surveillance Stage FL grade I stage IV Left temporal scalp lesion with some evidence of transformation to higher grade Social History: Never smoker Drinks occasionally Allergies / Meds Allergies: Coded Allergies: shellfish derived (Verified Allergy, Intermediate, hives, 12/27/18) Home Meds Reported Medications Cholecalciferol (Vitamin D3) (Vitamin D3) 1,000 Unit Tablet, 2000 UNITS PO DAILY, TAB 11/09/20 Sertraline Hcl (Zoloft) 100 Mg Tablet, 200 MG PO DAILY for 30 Days, #30 TAB 11/09/20 Aspirin (Aspirin) 81 Mg Tab.chew, 1 TAB PO DAILY for pain for 30 Days, #30 TAB 07/08/20 Amlodipine Besylate (Amlodipine Besylate) 10 Mg Tablet, 10 MG PO QAM 01/01/20 Pramipexole Di-HCl (Pramipexole Dihydrochloride) 0.75 Mg Tablet, 0.25 MG PO TID for 30 Days, #30 TAB 01/08/19 Multivit-Mins/Iron/Folic/Lycop (Centrum Men's Tablet) 1 Each Tablet, 1 TAB PO DAILY for 30 Days, #30 TAB 01/08/19 Discontinued Reported Medications Meclizine HCl (Meclizine HCl) 25 Mg Tablet, 25 MG PO BID for dizziness for 30 Days, #90 TAB 10/08/20 Mirtazapine (Mirtazapine) 7.5 Mg Tab, 15 MG PO QPM for 30 Days, #30 TAB 06/20/18 Review of Systems Review of Systems Constitutional: Denies: Chills, Fever, Night Sweats, Fatigue, Weight Loss Eyes: Denies: Pain HEENT: Denies: Head Aches Pulmonary: Denies: Dyspnea, Cough Cardiovascular: Denies: Chest Pain Gastrointestinal: Denies: Abdominal Pain Hematologic: Reports: Bruising, Purpura, Enlarged Lymph Nodes Musculoskeletal: Denies: Neck pain, Back pain Neurological: Denies: Weakness, Numbness Psych: Reports: Mood Normal Physical Examination Vital Signs Wt 173 lbs T 96.7 P 62 RR 16 BP 131/68 O2 98% Pain 0 Fatigue 1 General Exam: Positive: Alert, Cooperative, No Acute Distress Eye Exam: Positive: PERRLA, EOMI ENT EXAM: Positive: Atraumatic, Other ENT (The right pre-auricular mass is not palpable, there are no overlying skin changes from RT. The left temporal scalp lesion has regressed completely, there is remaining alopecia overlying the lesion site as well as small telangiectasias. No pigmentation changes) Neck Exam: Positive: Lymphadenopathy (There is a 2-3 cm soft rubbery right cervical node) Chest Exam: Positive: Clear to auscultation Heart Exam: Positive: Rate Normal Abdomen Exam: Positive: Soft Extremity Exam: Negative: Edema Skin Exam: Positive: Lesion (Scattered AK, bruising on arms, no obvious cancerous lesions on exposed skin of arms face and neck) Neuro Exam: Positive: Normal Gait, Normal Speech, Cranial Nerves 3-12 NL Psych Exam: Positive: Mental status NL Diagnostic and Laboratory Diagnostic Review Radiologic images, relevant labs and pathology reports were personally reviewed and discussed with Mr. Vides. Assessment and Plan Impression Assessment Mr. Vides is a 80 year old male with a history of stage IV grade I follicular lymphoma with symptomatic lesions of the left temporal scalp as well as right pre-auricular intraparotid node for which he underwent palliative RT 24 Gy in 12 fractions completed on 11/11/20. He is doing well overall. I will refer him to Dr. 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 The treated lesions are in complete response and he is happy with the outcome. He has some enlarged cervical nodes on the right, but these are not bothersome at this time. We discussed continued observation for now. He has an appointment to see me in May 2021. From there I would continue q6m followup for his FL. We can do some blood work at that time. Performance Status ECOG 0 Plan Referral to dermatology placed Follow up in May 2021 as previously scheduled Mr. Vides was encouraged to call with questions or concerns in the interim period. Billing Statement Total time of [28] minutes was spent preparing for the visit [1], obtaining HPI [7], examining the patient [3], reviewing diagnostic tests [1], discussing management options [6], coordinating care [2], and writing this note [8]. JESSICA LOPEZ MD Mar 11, 2021 10:35
== END ==
LOC: M ONCR 08:54
PROVIDERS: ATTEND General Practice
DX: C82.01 Follicular lymphoma grade I, lymph nodes of head, face, and neck (principal); Z79.82 Long term (current) use of aspirin; Z79.899 Other long term (current) drug therapy; Z91.013 Allergy to seafood; Z92.3 Personal history of irradiation

== ENCOUNTER → 2021-05-05 | Outpatient (CLI) | payer MEDICARE, BC, OTHER ==
[~2021-05-05] MED LIST changes: +GASTROGRAFIN SOLUTION 30ML (Q9963) As Ordered ONE; +ISOVUE-370 76% 100ML VIAL As Ordered ONE
--- NOTE | 2021-05-05 14:21 | REPVR ---
PROCEDURE INFORMATION: Exam: CT Neck With Contrast Exam date and time: 05/05/2021 1:26 PM Age: 80 years old Clinical indication: Other: Lymphoma follow up TECHNIQUE: Imaging protocol: Computed tomography images of the neck with contrast. Radiation optimization: All CT scans at this facility use at least one of these dose optimization techniques: automated exposure control; mA and/or kV adjustment per patient size (includes targeted exams where dose is matched to clinical indication); or iterative reconstruction. Contrast material: ISOVUE 370; Contrast volume: 100 ml; Contrast route: INTRAVENOUS (IV); COMPARISON: CT Neck with contrast 12/07/2020 10:56 AM FINDINGS: Orbital cavity: Thinning of the lenses of the globes consistent with prior lens surgery. Paranasal sinuses: Trace maxillary sinus mucosal thickening. Nasopharynx: Unremarkable. Oropharynx: Unremarkable. No significant tonsillar enlargement. Hypopharynx: Unremarkable. Larynx: Unremarkable. Normal epiglottis. Retropharyngeal space: Unremarkable. Submandibular/Parotid glands: Normal. Glands are normal in size. Thyroid: Normal. No enlarged or calcified nodules. Lymph nodes: Parotid and periparotid lymphadenopathy is stable to improved. A persistent left intraparotid lymph node measures 1.0 x 1.0 cm on image 23 of series 201, stable. A left posterior periauricular lymph node is smaller in size measuring 1.4 x 1.2 cm on image 25 series 201 compared to 1.4 x 1.4 cm previously. Residua of a right intraparotid lymph node measures 0.7 x 0.6 cm on image 26 series 201 compared to 1.7 x 1.6 cm previously. Conglomerate left posterior cervical lymphadenopathy has increased currently measuring 5.1 x 3.3 cm on sagittal image 59 of series 203 compared to 4.4 x 3.0 cm previously. This lymphadenopathy is additionally appreciated on axial image 27 of series 201 abutting the left sternocleidomastoid muscle. Mild left internal jugular and accessory mickey chain lymphadenopathy elsewhere is unchanged. Scattered small right cervical lymph nodes are stable. Trachea: Visualized trachea is unremarkable. Lungs: The lung apices demonstrate air trapping. Bones/joints: The cervical spine demonstrates slight levoconvex scoliosis. There is rakh-[id number]-[id number] multilevel disc height loss and spondylosis as well as facet arthropathy. Vasculature: Mild carotid atherosclerosis. Soft tissues: Unremarkable. No significant soft tissue swelling. IMPRESSION: Progressive left posterior cervical lymphadenopathy compared to the prior study. Electronically signed by: Christianne Mitchell On 05/05/2021 14:21:05 PM
--- NOTE | 2021-05-05 14:32 | REP ---
INDICATION: LYMPHOMA FOLLOW UP. COMPARISON: None. TECHNIQUE: Scans were obtained after contrast administration. FINDINGS: The liver shows normal size. There are several tiny cysts. There is no mass or biliary tract dilatation. The gallbladder is fluid filled without evidence of gallstone. The pancreas, spleen, aorta, adrenal glands and kidneys are unremarkable. There is no evidence of retroperitoneal or mesenteric adenopathy. The scans of the pelvis shows radiation seeds in the prostate. No other abnormalities are demonstrated. There is bilateral spondylolysis at the L5-S1 level and minimal spondylolisthesis. IMPRESSION: Several tiny cysts in the liver. Bilateral spondylo lysis and minimal spondylolisthesis L5-S1 level. No adenopathy in the abdomen or pelvis. <Electronically signed by Hudson Julian > 05/05/21 [id number]
--- NOTE | 2021-05-05 14:34 | REP ---
INDICATION: LYMPHOMA FOLLOW UP. COMPARISON: Chest CT with IV contrast dated 02/13/2020 and 12/07/2020. TECHNIQUE: Chest CT with IV contrast. FINDINGS: There is an enlarged lymph node in the right axilla measuring 11 mm in diameter, unchanged from both prior studies. There are scattered small normal-sized lymph nodes in the axilla bilaterally, unchanged. No other enlarged axillary nodes are identified. This is unchanged. There is no mediastinal or hilar lymph node enlargement. This is unchanged. There is a pleural based 12 mm nodule in the deep inferior posterior sulcus of the right lower lobe, unchanged from both prior studies. There are no other lung nodules or masses. There are no infiltrates or pleural effusions. The thoracic aorta is unremarkable. Cardiac size is normal. There is no pericardial effusion. There are no lytic, blastic destructive skeletal changes. There is degenerative disc disease throughout the thoracic spine, unchanged. IMPRESSION: There is no change from the comparison studies. The enlarged right axillary node is unchanged. The right lower lobe pleural-based lung nodule is unchanged. There are no new or acute findings. <Electronically signed by Neil Doll > 05/05/21 [id number]
== END ==
LOC: M RAD 11:09
PROVIDERS: ATTEND Internal Medicine Medical Oncology
DX: C82.01 Follicular lymphoma grade I, lymph nodes of head, face, and neck (principal)
CPT/HCPCS: 70491; 71260; 74177; Q9963; Q9967

== ENCOUNTER → 2021-06-09 | Outpatient (CLI) | payer MEDICARE, BC, OTHER ==
[~2021-06-09] MED LIST changes: -GASTROGRAFIN SOLUTION 30ML (Q9963) As Ordered ONE; -ISOVUE-370 76% 100ML VIAL As Ordered ONE
--- NOTE | 2021-06-09 16:40 | RADONC ---
Radiation Oncology Hx/FUP Radiation Oncology Hx/FUP Date of Service: Jun 09, 2021 Pt Identifier Maninder Vides is a 80 year old male seen for a followup visit today at the department of radiation oncology for a history of stage IV grade I follicular lymphoma with symptomatic lesions of the left temporal scalp as well as right pre-auricular intraparotid node for which he underwent palliative RT 24 Gy in 12 fractions completed on 11/11/20. 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 Green) Follicular lymphoma: -Diagnosed in 2017 with FL grade 1, imaging consistent with stage IV disease (NB 09/29/16 PET-CT). No BLC2 rearrangement. He received BR for 1.5 cycles, had a reaction to rituximab infusion and was admitted. Had initial CR. -Experienced progression in cervical nodes on January 2020 scans. -Complained of progression of a left scalp mass which was biopsied in February 2020 and showed some large cell features. 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 -He received cyclophosphamide which was poorly tolerated. -10/26/20-11/11/20 Palliative RT 24 Gy in 12 fractions with electrons to left temporal scalp and right pre-auricular intraparotid lesions. Recent data: 05/05/21 CT neck COMPARISON: CT Neck with contrast 12/07/2020 10:56 AM FINDINGS: Orbital cavity: Thinning of the lenses of the globes consistent with prior lens surgery. Paranasal sinuses: Trace maxillary sinus mucosal thickening. Nasopharynx: Unremarkable. Oropharynx: Unremarkable. No significant tonsillar enlargement. Hypopharynx: Unremarkable. Larynx: Unremarkable. Normal epiglottis. Retropharyngeal space: Unremarkable. Submandibular/Parotid glands: Normal. Glands are normal in size. Thyroid: Normal. No enlarged or calcified nodules. Lymph nodes: Parotid and periparotid lymphadenopathy is stable to improved. A persistent left intraparotid lymph node measures 1.0 x 1.0 cm on image 23 of series 201, stable. A left posterior periauricular lymph node is smaller in size measuring 1.4 x 1.2 cm on image 25 series 201 compared to 1.4 x 1.4 cm previously. Residua of a right intraparotid lymph node measures 0.7 x 0.6 cm on image 26 series 201 compared to 1.7 x 1.6 cm previously. Conglomerate left posterior cervical lymphadenopathy has increased currently measuring 5.1 x 3.3 cm on sagittal image 59 of series 203 compared to 4.4 x 3.0 cm previously. This lymphadenopathy is additionally appreciated on axial image 27 of series 201 abutting the left sternocleidomastoid muscle. Mild left internal jugular and accessory mickey chain lymphadenopathy elsewhere is unchanged. Scattered small right cervical lymph nodes are stable. Trachea: Visualized trachea is unremarkable. Lungs: The lung apices demonstrate air trapping. Bones/joints: The cervical spine demonstrates slight levoconvex scoliosis. There is daae-nc-gdbhwzat multilevel disc height loss and spondylosis as well as facet arthropathy. Vasculature: Mild carotid atherosclerosis. Soft tissues: Unremarkable. No significant soft tissue swelling. IMPRESSION: Progressive left posterior cervical lymphadenopathy compared to the prior study. 05/05/21 CT chest FINDINGS: There is an enlarged lymph node in the right axilla measuring 11 mm in diameter, unchanged from both prior studies. There are scattered small normal-sized lymph nodes in the axilla bilaterally, unchanged. No other enlarged axillary nodes are identified. This is unchanged. There is no mediastinal or hilar lymph node enlargement. This is unchanged. There is a pleural based 12 mm nodule in the deep inferior posterior sulcus of the right lower lobe, unchanged from both prior studies. There are no other lung nodules or masses. There are no infiltrates or pleural effusions. The thoracic aorta is unremarkable. Cardiac size is normal. There is no pericardial effusion. There are no lytic, blastic destructive skeletal changes. There is degenerative disc disease throughout the thoracic spine, unchanged. IMPRESSION: There is no change from the comparison studies. The enlarged right axillary node is unchanged. The right lower lobe pleural-based lung nodule is unchanged. There are no new or acute findings. 05/05/21 CT abdomen pelvis FINDINGS: The liver shows normal size. There are several tiny cysts. There is no mass or biliary tract dilatation. The gallbladder is fluid filled without evidence of gallstone. The pancreas, spleen, aorta, adrenal glands and kidneys are unremarkable. There is no evidence of retroperitoneal or mesenteric adenopathy. The scans of the pelvis shows radiation seeds in the prostate. No other abnormalities are demonstrated. There is bilateral spondylolysis at the L5-S1 level and minimal spondylolisthesis. IMPRESSION: Several tiny cysts in the liver. Bilateral spondylo lysis and minimal spondylolisthesis L5-S1 level. No adenopathy in the abdomen or pelvis. Interval History Maninder reports he is not doing well. His , who has dementia no longer recognizes him, and this has been in his own words "heart rending". Moreover, he has noted increase in the adenopathy in his neck especially on the left side, this is painless, but concerning to him. He has been losing weight, appetite is suppressed. He also is experiencing intractable fatigue, which is unusual for him, in recent months, he was extremely active and constantly working on [employer]. He denies fevers and night sweats. No dysphagia, no dry mouth. No pain with swallowing. No GI or complaints. He did have extensive cryoablation of AK lesions on face neck and arms, last week with Dr. Green. No biopsies or malignant appearing skin lesions. Current Therapy Surveillance Stage FL grade I stage IV Left temporal scalp lesion with some evidence of transformation to higher grade Social History: Never smoker Drinks occasionally Allergies / Meds Allergies: Coded Allergies: shellfish derived (Verified Allergy, Intermediate, hives, 12/27/18) Home Meds Reported Medications Cholecalciferol (Vitamin D3) (Vitamin D3) 1,000 Unit Tablet, 2000 UNITS PO DAILY, TAB 11/09/20 Sertraline Hcl (Zoloft) 100 Mg Tablet, 200 MG PO DAILY for 30 Days, #30 TAB 11/09/20 Aspirin (Aspirin) 81 Mg Tab.chew, 1 TAB PO DAILY for pain for 30 Days, #30 TAB 07/08/20 Amlodipine Besylate (Amlodipine Besylate) 10 Mg Tablet, 10 MG PO QAM 01/01/20 Pramipexole Di-HCl (Pramipexole Dihydrochloride) 0.75 Mg Tablet, 0.25 MG PO TID for 30 Days, #30 TAB 01/08/19 Multivit-Mins/Iron/Folic/Lycop (Centrum Men's Tablet) 1 Each Tablet, 1 TAB PO DAILY for 30 Days, #30 TAB 01/08/19 Review of Systems Review of Systems Constitutional: Reports: Fatigue, Weight Loss; Denies: Chills, Fever, Night Sweats Eyes: Denies: Pain, Vision change HEENT: Denies: Head Aches, Ear Pain, Dysphagia Pulmonary: Denies: Dyspnea Cardiovascular: Denies: Chest Pain Gastrointestinal: Denies: Abdominal Pain Hematologic: Denies: Bruising, Bleeding Excessively Endocrine: Denies: Cold Intolerance Musculoskeletal: Denies: Neck pain, Back pain Neurological: Denies: Weakness, Numbness Psych: Reports: Depression; Denies: Thoughts of Self Harm Physical Examination Vital Signs Wt 169 lbs (from 176 lbs on 11/09/20) T 97.8 P 95 RR 18 BP 146/77 O2 100% Pain 0 Fatigue 5 General Exam: Alert, Cooperative, No Acute Distress Eye Exam: PERRLA, EOMI ENT EXAM: Atraumatic, Pharynx Normal, Other ENT (Left temporal scalp treatment site, with resolved epilation, no evidence of recurrent lesion or induration. Right partid gland soft mobile no discernible intraparotid mass. ) Neck Exam: Supple, Lymphadenopathy (There is palpable left intraparotid and posterior auricular/posterior triangle adenopathy. There is palpable BL cervical adenopathy. No supraclavicular or infraclavicular adenopathy. ) Chest Exam: Clear to auscultation Heart Exam: Rate Normal, Regular Rhythm Abdomen Exam: Soft Extremity Exam: Negative: Edema Skin Exam: Nl turgor and temperature, Lesion (There are various red flat lesion on the arms, skin of face, and neck, sequelae of recent cryoablation) Neuro Exam: Normal Gait, Normal Speech, Cranial Nerves 3-12 NL Psych Exam: Mental status NL Diagnostic and Laboratory Diagnostic Review Radiologic images, relevant labs and pathology reports were personally reviewed and discussed with Mr. Vides. Assessment and Plan Impression Assessment Mr. Vides is a 80 year old male with a history of stage IV grade I follicular lymphoma with symptomatic lesions of the left temporal scalp as well as right pre-auricular intraparotid node for which he underwent palliative RT 24 Gy in 12 fractions completed on 11/11/20. Maninder is struggling, I think this is multifactorial, adjustment v. depression related to his 's progressive dementia, and also progression of his FL, which certainly could be contributing to his poor energy reserves and weight loss as well. I discussed this assessment with him and offered emotional support, and to refer to him for bereavement counseling or prescribe an SSRI in effort to improve his mood. We had a therapeutic conversation about what he is experiencing and we agreed to forego these interventions for now. With respect to the progressive disease in the neck, he has been struggling with the idea of treatment or continued observation. He would like Dr. Richards's assessment prior to resuming any therapy. I encouraged him to pursue treatment in this setting as it very well might improve how he feels, especially given that there are minimally toxic systemic therapies available for low grade FL. I will refer him back to Dr. Richards for a discussion. With respect to the irradiated sites there is no evidence of recurrent disease. I do not think that additional RT is warranted at this time. Although if any individual site became outwardly symptomatic (rather than constitutionally symptomatic) we could perform additional RT. Performance Status ECOG 2 Plan Follow up in [address] Richards [facility] No RT at this time Mr. Vides was encouraged to call with questions or concerns in the interim period. Billing Statement Total time of [34] minutes was spent preparing for the visit [1], obtaining HPI [8], examining the patient [4], reviewing diagnostic tests [4], discussing management options [8], coordinating care [2], and writing this note [7]. JESSICA LOPEZ MD Jun 09, 2021 16:40
== END ==
LOC: M ONCR 13:03
PROVIDERS: ATTEND General Practice
DX: C82.01 Follicular lymphoma grade I, lymph nodes of head, face, and neck (principal); L57.0 Actinic keratosis; Z79.82 Long term (current) use of aspirin; Z79.899 Other long term (current) drug therapy; Z85.46 Personal history of malignant neoplasm of prostate; Z85.828 Personal history of other malignant neoplasm of skin; Z91.013 Allergy to seafood; Z92.3 Personal history of irradiation

== ENCOUNTER → 2021-08-05 | Outpatient (CLI) | payer MEDICARE, BC, OTHER ==
[~2021-08-05] MED LIST changes: +DEXA4TA PO
--- NOTE | 2021-08-05 15:15 | RADONC ---
Radiation Oncology Hx/FUP Radiation Oncology Hx/FUP Date of Service: Aug 05, 2021 Pt Identifier Maninder Vides is a 81 year old male seen for a followup visit today at the department of radiation oncology for a history of stage IV grade I follicular lymphoma with symptomatic lesions of the left temporal scalp as well as right pre-auricular intraparotid node for which he underwent palliative RT 24 Gy in 12 fractions completed on 11/11/20. 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 Green) Follicular lymphoma: -Diagnosed in 2017 with FL grade 1, imaging consistent with stage IV disease (NB 09/29/16 PET-CT). No BLC2 rearrangement. He received BR for 1.5 cycles, had a reaction to rituximab infusion and was admitted. Had initial CR. -Experienced progression in cervical nodes on January 2020 scans. -Complained of progression of a left scalp mass which was biopsied in February 2020 and showed some large cell features. 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 -He received cyclophosphamide which was poorly tolerated. -10/26/20-11/11/20 Palliative RT 24 Gy in 12 fractions with electrons to left temporal scalp and right pre-auricular intraparotid lesions. -05/05/21 CT scans with solitary 1.1 cm right axillary node and enlarging L>R cervical LNs. -07/26/21 Started BR Interval History Maninder reports he struggled mightily with the 1st cycle of BR. He had persistent and intractable diarrhea for days afterward. This has improved somewhat. He reports that he will try another cycle, but that if the side effects are the same he will discontinue. Current Therapy BR from 07/26/21 Stage FL grade I stage IV Left temporal scalp lesion with some evidence of transformation to higher grade Social History: Never smoker Drinks occasionally Allergies / Meds Allergies: Coded Allergies: shellfish derived (Verified Allergy, Intermediate, hives, 12/27/18) Home Meds Active Scripts Dexamethasone (Dexamethasone) 4 Mg Tablet, 2 TAB PO DAILY as directed, #40 TAB Prov:MARIA E FARMER MD FACP 07/23/21 Reported Medications Cholecalciferol (Vitamin D3) (Vitamin D3) 1,000 Unit Tablet, 2000 UNITS PO DAILY, TAB 11/09/20 Sertraline Hcl (Zoloft) 100 Mg Tablet, 200 MG PO DAILY for 30 Days, #30 TAB 11/09/20 Aspirin (Aspirin) 81 Mg Tab.chew, 1 TAB PO DAILY for pain for 30 Days, #30 TAB 07/08/20 Amlodipine Besylate (Amlodipine Besylate) 10 Mg Tablet, 10 MG PO QAM 01/01/20 Pramipexole Di-HCl (Pramipexole Dihydrochloride) 0.75 Mg Tablet, 0.25 MG PO TID for 30 Days, #30 TAB 01/08/19 Multivit-Mins/Iron/Folic/Lycop (Centrum Men's Tablet) 1 Each Tablet, 1 TAB PO DAILY for 30 Days, #30 TAB 01/08/19 Review of Systems Review of Systems Constitutional: Reports: Fatigue, Weight Loss Eyes: Denies: Pain HEENT: Denies: Head Aches Skin: Denies: Rash Gastrointestinal: Reports: Diarrhea Genitourinary: Reports: Frequency Neurological: Denies: Weakness, Numbness Psych: Reports: Mood Normal Physical Examination Vital Signs Wt 168 lbs T 98.4 P 90 RR 16 BP 133/69 O2 97% Pain 0 Fatigue1 General Exam: Alert, Cooperative, No Acute Distress Eye Exam: PERRLA, EOMI ENT EXAM: Other ENT (Left scalp treatment site flat, no residual lesion or erythema. Palpable left posterior auricular adenopathy. ) Extremity Exam: Negative: Edema Skin Exam: Nl turgor and temperature Neuro Exam: Normal Gait, Normal Speech, Cranial Nerves 3-12 NL Psych Exam: Mental status NL Diagnostic and Laboratory Diagnostic Review Radiologic images, relevant labs and pathology reports were personally reviewed and discussed with Mr. Vides. Assessment and Plan Impression Assessment Mr. Vides is a 81 year old male with a history of stage IV grade I follicular lymphoma with symptomatic lesions of the left temporal scalp as well as right pre-auricular intraparotid node for which he underwent palliative RT 24 Gy in 12 fractions completed on 11/11/20. He is struggling with BR, says he may not continue beyond cycle 2 if the GI side effects are the same. Based on his history, he had a sustained remission upon completing ~2 cycles of single agent rituximab, therefore he may do well even if he discontinues treatment beyond the next cycle, also I mentioned that his overall burden of disease is low, confined to the necks +/- a solitary right axillary node, thus even if he discontinues systemic therapy, he could pursue palliative RT to any growing or bothersome sites. Doses as low as 4 Gy in 2 fractions are effective for low grade FL and pose no significant toxicity risks in a person his age. Because the need for additional RT may arise, I will see him again in 3 months time. We will attempt to coordinate follow up same day as Dr. Farmer. As he does not have any appointments scheduled with her beyond the end of this month, I will give a 3 month follow up which can be changed in accordance with Dr. Farmer's schedule around that time. Performance Status ECOG 1 Plan Follow up in 3 months time Consideration of additional palliative RT as needed Mr. Vides was encouraged to call with questions or concerns in the interim period. Billing Statement Total time of [26] minutes was spent preparing for the visit [1], obtaining HPI [6], examining the patient [1], reviewing diagnostic tests [3], discussing management options [6], coordinating care [2], and writing this note [7]. JESSICA LOPEZ MD Aug 05, 2021 15:14
== END ==
LOC: M ONCR 13:13
PROVIDERS: ATTEND General Practice
DX: C82.01 Follicular lymphoma grade I, lymph nodes of head, face, and neck (principal); Z92.3 Personal history of irradiation; Z85.46 Personal history of malignant neoplasm of prostate; Z91.013 Allergy to seafood; Z79.899 Other long term (current) drug therapy

== ENCOUNTER → 2021-10-05 | Outpatient (CLI) | payer MEDICARE, BC, OTHER ==
[~2021-10-05] MED LIST changes: +ONDA-84 PO; -ONDA8TAB10 PO; -PROC10TA4 PO; +PROC10TA5 PO
== END ==
LOC: M RAD 10:27
PROVIDERS: ATTEND Internal Medicine Medical Oncology
DX: R60.0 Localized edema (principal)

== ENCOUNTER → 2021-10-15 | Outpatient (CLI) | payer MEDICARE, BC, OTHER ==
[~2021-10-15] MED LIST changes: +GASTROGRAFIN SOLUTION 30ML (Q9963) As Ordered ONE; +ISOVUE-370 76% 100ML VIAL As Ordered ONE
== END ==
LOC: M RAD 08:28
PROVIDERS: ATTEND Internal Medicine Medical Oncology
DX: C85.90 Non-Hodgkin lymphoma, unspecified, unspecified site (principal); R91.8 Other nonspecific abnormal finding of lung field; R16.1 Splenomegaly, not elsewhere classified; K76.89 Other specified diseases of liver; K57.30 Diverticulosis of large intestine without perforation or abscess without bleeding; K42.9 Umbilical hernia without obstruction or gangrene
CPT/HCPCS: 70491; 71260; 74177; Q9963; Q9967

== ENCOUNTER → 2021-11-02 | Outpatient (POV) | payer MEDICARE, BC, OTHER ==
[~2021-11-02] VITALS: Ht 182.9 cm; Wt 72.7 kg
[~2021-11-02] MED LIST changes: -GASTROGRAFIN SOLUTION 30ML (Q9963) As Ordered ONE; -ISOVUE-370 76% 100ML VIAL As Ordered ONE
[2021-11-02 13:15] VITALS: BP 150/74
== END ==
LOC: M IRPOV 13:08
PROVIDERS: ATTEND Radiology Diagnostic Radiology
DX: Z45.2 Encounter for adjustment and management of vascular access device (principal)

== ENCOUNTER → 2021-11-10 | Outpatient (CLI) | payer MEDICARE, BC, OTHER | LOC: M ONCR 14:51 | PROVIDERS: ATTEND General Practice | DX: C82.01 Follicular lymphoma grade I, lymph nodes of head, face, and neck (principal); Z85.46 Personal history of malignant neoplasm of prostate; Z85.828 Personal history of other malignant neoplasm of skin ==

== ENCOUNTER → 2022-01-31 | Outpatient (CLI) | payer MEDICARE, BC, OTHER ==
[~2022-01-31] MED LIST changes: -D31000TA2 PO; +GASTROGRAFIN SOLUTION 30ML (Q9963) As Ordered ONE; +ISOVUE-370 76% 100ML VIAL As Ordered ONE; +VITA100093 PO
== END ==
LOC: M RAD 10:59
PROVIDERS: ATTEND Internal Medicine Medical Oncology
DX: C85.94 Non-Hodgkin lymphoma, unspecified, lymph nodes of axilla and upper limb (principal); R16.1 Splenomegaly, not elsewhere classified; K57.30 Diverticulosis of large intestine without perforation or abscess without bleeding
CPT/HCPCS: 70491; 71260; 74177; Q9963; Q9967

== ENCOUNTER → 2022-03-09 | Outpatient (CLI) | payer MEDICARE, BC, OTHER ==
[~2022-03-09] MED LIST changes: -GASTROGRAFIN SOLUTION 30ML (Q9963) As Ordered ONE; -ISOVUE-370 76% 100ML VIAL As Ordered ONE; +TRIA1CR80 TOP
== END ==
LOC: M ONCR 11:15
PROVIDERS: ATTEND General Practice
DX: C44.42 Squamous cell carcinoma of skin of scalp and neck (principal); C44.329 Squamous cell carcinoma of skin of other parts of face; C82.01 Follicular lymphoma grade I, lymph nodes of head, face, and neck; H53.8 Other visual disturbances; L57.0 Actinic keratosis; Z79.82 Long term (current) use of aspirin; Z79.899 Other long term (current) drug therapy; Z85.46 Personal history of malignant neoplasm of prostate; Z85.828 Personal history of other malignant neoplasm of skin; Z92.3 Personal history of irradiation; Z92.21 Personal history of antineoplastic chemotherapy; Z91.013 Allergy to seafood

== ENCOUNTER → 2022-04-01 | Outpatient (REF) | payer MEDICARE, OTHER | LOC: M SFHCDERM 16:12 | PROVIDERS: ATTEND Nurse Practitioner Family | DX: C44.319 Basal cell carcinoma of skin of other parts of face (principal) | CPT/HCPCS: 11102; 17004; 88305; G0463 ==

== ENCOUNTER → 2022-06-01 | Outpatient (CLI) | payer MEDICARE, BC, OTHER ==
[~2022-06-01] MED LIST changes: +LIDOCAINE 1% MDV 20ML VIAL As Ordered ONE
[2022-06-01 12:34] LABS: BASO % 0.9 % (0.0-1.0); EOS # 0.2 10^3/uL (0.0-0.5); EOS % 3.4 % (0.0-3.0); HEMATOCRIT 46.8 % (42.0-52.0); HEMOGLOBIN 15.9 g/dl (13.5-17.5); LYMPH # 0.9 10^3/uL (1.5-5.0); LYMPH % 19.3 % (24.0-44.0); MEAN CORPUSCULAR HEMOGLOBIN 32.7 pg (27.0-33.0); MEAN CORPUSCULAR VOLUME 96.3 fl (80.0-96.0); MONO # 0.5 10^3/uL (0.0-0.8); MONO % 10.1 % (2.0-8.0); NEUTROPHILS % 66.1 % (36.0-66.0); PLATELET COUNT, AUTOMATED 217 10^3/uL (150-450); RED BLOOD COUNT 4.86 10^6/uL (4.30-6.10); WHITE BLOOD COUNT 4.5 10^3/uL (4.0-10.0)
[2022-06-01 12:46] VITALS: BP 135/65
== END ==
LOC: M IRPRO 12:02
PROVIDERS: ATTEND Internal Medicine Medical Oncology
DX: D72.819 Decreased white blood cell count, unspecified (principal); Z85.79 Personal history of other malignant neoplasms of lymphoid, hematopoietic and related tissues; Z91.013 Allergy to seafood

== ENCOUNTER → 2022-09-05 | Outpatient (REF) | payer MEDICARE, BC, OTHER ==
[~2022-09-05] MED LIST changes: -LIDOCAINE 1% MDV 20ML VIAL As Ordered ONE
[2022-09-05 11:53] LABS: BASO % 0.7 % (0.0-1.0); EOS # 0.2 10^3/uL (0.0-0.5); EOS % 4.1 % (0.0-3.0); HEMATOCRIT 45.1 % (42.0-52.0); HEMOGLOBIN 15.4 g/dl (13.5-17.5); LYMPH # 0.8 10^3/uL (1.5-5.0); LYMPH % 18.1 % (24.0-44.0); MEAN CORPUSCULAR HGB CONC 34.1 g/dl (32.0-36.5); MEAN CORPUSCULAR VOLUME 96.6 fl (80.0-96.0); MONO # 0.5 10^3/uL (0.0-0.8); MONO % 12.3 % (2.0-8.0); NEUTROPHILS # 2.7 10^3/uL (1.5-8.5); NEUTROPHILS % 64.6 % (36.0-66.0); PLATELET COUNT, AUTOMATED 217 10^3/uL (150-450); RED BLOOD COUNT 4.67 10^6/uL (4.30-6.10); WHITE BLOOD COUNT 4.2 10^3/uL (4.0-10.0)
[2022-09-05 12:22] LABS: LDH LACTATE DEHYDROGENASE 164 U/L (120-246)
[2022-09-05 12:23] LABS: ALBUMIN 3.9 G/DL (3.2-5.2); ALKALINE PHOSPHATASE 101 U/L (46-116); ALT/SGPT 24 U/L (7.0-40); AST/SGOT 21 U/L (<34); BILIRUBIN,TOTAL 0.9 MG/DL (0.3-1.2); BLOOD UREA NITROGEN 18 MG/DL (9-23); CALCIUM LEVEL 9.1 MG/DL (8.3-10.6); CARBON DIOXIDE LEVEL 31 MMOL/L (20-31); CHLORIDE LEVEL 105 MMOL/L (98-107); CREATININE FOR GFR 0.94 MG/DL (0.70-1.30); GLOMERULAR FILTRATION RATE > 60.0 (>35); GLUCOSE, FASTING 81 MG/DL (74-106); POTASSIUM SERUM 4.2 MMOL/L (3.5-5.1); SODIUM LEVEL 144 MMOL/L (136-145); TOTAL PROTEIN 6.5 G/DL (5.7-8.2)
[2022-09-05 12:24] LABS: THYROID STIMULATING HORMONE 6.803 uIU/ML (0.55-4.78)
== END ==
LOC: M LABDRAWC 11:22
PROVIDERS: ATTEND Internal Medicine Medical Oncology
DX: C85.94 Non-Hodgkin lymphoma, unspecified, lymph nodes of axilla and upper limb (principal); Z79.899 Other long term (current) drug therapy

== ENCOUNTER → 2023-01-12 | Outpatient (CLI) | payer MEDICARE, BC, OTHER ==
[~2023-01-12] MED LIST changes: +LIDOCAINE 1% MDV 20ML VIAL As Ordered ONE
[2023-01-12 11:13] VITALS: BP 172/82
== END ==
LOC: M IRPRO 10:22
PROVIDERS: ATTEND Otolaryngology
DX: C82.91 Follicular lymphoma, unspecified, lymph nodes of head, face, and neck (principal)

== ENCOUNTER → 2023-01-18 | Outpatient (REF) | payer MEDICARE, BC, OTHER ==
[~2023-01-18] MED LIST changes: -LIDOCAINE 1% MDV 20ML VIAL As Ordered ONE
== END ==
LOC: M SFHCDERM 17:53
PROVIDERS: ATTEND Physician Assistant
DX: C44.329 Squamous cell carcinoma of skin of other parts of face (principal)

== ENCOUNTER → 2023-02-02 | Outpatient (CLI) | payer MEDICARE, BC, OTHER | LOC: M ONCR 10:23 | PROVIDERS: ATTEND General Practice | DX: C82.01 Follicular lymphoma grade I, lymph nodes of head, face, and neck (principal); Z85.46 Personal history of malignant neoplasm of prostate; Z85.828 Personal history of other malignant neoplasm of skin; Z72.89 Other problems related to lifestyle; Z79.82 Long term (current) use of aspirin; Z79.899 Other long term (current) drug therapy; Z91.013 Allergy to seafood; Z92.29 Personal history of other drug therapy ==

== ENCOUNTER → 2023-02-22 | Outpatient (RCR) | payer MEDICARE, BC, OTHER | LOC: M ONCR 02-10 10:17 | PROVIDERS: ATTEND General Practice | DX: C82.01 Follicular lymphoma grade I, lymph nodes of head, face, and neck (principal) ==

== ENCOUNTER → 2023-03-16 | Outpatient (CLI) | payer MEDICARE, BC, OTHER | LOC: M ONCR 11:01 | PROVIDERS: ATTEND General Practice | DX: C82.01 Follicular lymphoma grade I, lymph nodes of head, face, and neck (principal); C44.320 Squamous cell carcinoma of skin of unspecified parts of face; L59.8 Other specified disorders of the skin and subcutaneous tissue related to radiation; Z92.3 Personal history of irradiation ==

== ENCOUNTER 2023-03-21 10:27 | Outpatient (RCR) | payer MEDICARE, BC, OTHER | END 2023-03-24 | LOC: M ONCR 10:27 | PROVIDERS: ATTEND General Practice | DX: C82.01 Follicular lymphoma grade I, lymph nodes of head, face, and neck (principal); C44.320 Squamous cell carcinoma of skin of unspecified parts of face ==

== ENCOUNTER → 2023-05-09 | Outpatient (CLI) | payer MEDICARE, BC, OTHER | LOC: M ONCR 10:47 | PROVIDERS: ATTEND General Practice | DX: C82.01 Follicular lymphoma grade I, lymph nodes of head, face, and neck (principal); J30.2 Other seasonal allergic rhinitis; Z71.2 Person consulting for explanation of examination or test findings; Z85.46 Personal history of malignant neoplasm of prostate; Z85.828 Personal history of other malignant neoplasm of skin; Z79.82 Long term (current) use of aspirin; Z79.899 Other long term (current) drug therapy; Z91.013 Allergy to seafood; Z92.21 Personal history of antineoplastic chemotherapy; Z92.3 Personal history of irradiation ==

== ENCOUNTER → 2023-05-19 | Outpatient (REF) | payer MEDICARE, BC, OTHER | LOC: M SFHCDERM 11:45 | PROVIDERS: ATTEND Physician Assistant | DX: D04.39 Carcinoma in situ of skin of other parts of face (principal) ==

== ENCOUNTER → 2023-06-13 | Outpatient (REF) | payer MEDICARE, BC, OTHER ==
[2023-06-13 19:29] LABS: BASO % 0.4 % (0.0-1.0); EOS # 0.4 10^3/uL (0.0-0.5); EOS % 8.2 % (0.0-3.0); HEMATOCRIT 50.2 % (42.0-52.0); HEMOGLOBIN 16.7 g/dl (13.5-17.5); LYMPH # 0.6 10^3/uL (1.5-5.0); LYMPH % 12.2 % (24.0-44.0); MEAN CORPUSCULAR HEMOGLOBIN 32.5 pg (27.0-33.0); MEAN CORPUSCULAR HGB CONC 33.3 g/dl (32.0-36.5); MEAN CORPUSCULAR VOLUME 97.7 fl (80.0-96.0); MONO # 0.5 10^3/uL (0.0-0.8); MONO % 11.1 % (2.0-8.0); NEUTROPHILS # 3.1 10^3/uL (1.5-8.5); NEUTROPHILS % 67.9 % (36.0-66.0); PLATELET COUNT, AUTOMATED 221 10^3/uL (150-450); RED BLOOD COUNT 5.14 10^6/uL (4.30-6.10); WHITE BLOOD COUNT 4.5 10^3/uL (4.0-10.0)
[2023-06-13 19:46] LABS: LDH LACTATE DEHYDROGENASE 165 U/L (120-246)
[2023-06-13 19:47] LABS: ALKALINE PHOSPHATASE 85 U/L (46-116); ALT/SGPT 17 U/L (7.0-40); AST/SGOT 15 U/L (<34); BILIRUBIN,TOTAL 1.4 MG/DL (0.3-1.2); BLOOD UREA NITROGEN 15 MG/DL (9-23); CALCIUM LEVEL 9.7 MG/DL (8.3-10.6); CARBON DIOXIDE LEVEL 33 MMOL/L (20-31); CHLORIDE LEVEL 104 MMOL/L (98-107); CREATININE FOR GFR 1.02 MG/DL (0.70-1.30); GLOMERULAR FILTRATION RATE > 60.0 (>35); GLUCOSE, FASTING 88 MG/DL (74-106); POTASSIUM SERUM 4.2 MMOL/L (3.5-5.1); SODIUM LEVEL 144 MMOL/L (136-145); TOTAL PROTEIN 6.6 G/DL (5.7-8.2)
== END ==
LOC: M LABDRAWC 17:13
PROVIDERS: ATTEND Nurse Practitioner
DX: C85.94 Non-Hodgkin lymphoma, unspecified, lymph nodes of axilla and upper limb (principal); C82.51 Diffuse follicle center lymphoma, lymph nodes of head, face, and neck; C90.00 Multiple myeloma not having achieved remission; Z79.899 Other long term (current) drug therapy

== ENCOUNTER → 2023-08-04 | Outpatient (CLI) | payer MEDICARE, BC, OTHER | LOC: M SOG 08:08 | PROVIDERS: ATTEND Orthopaedic Surgery | DX: M25.561 Pain in right knee (principal) ==

== ENCOUNTER → 2023-09-06 | Outpatient (CLI) | payer MEDICARE, BC, OTHER ==
[~2023-09-06] MED LIST changes: +ISOVUE-370 76% 100ML VIAL ONE
== END ==
LOC: M PLAIMG 13:34
PROVIDERS: ATTEND Nurse Practitioner
DX: C82.90 Follicular lymphoma, unspecified, unspecified site (principal)
CPT/HCPCS: 70491; Q9967

== ENCOUNTER → 2023-12-08 | Outpatient (REF) | payer MEDICARE, BC, OTHER ==
[~2023-12-08] MED LIST changes: +DIFL200T PO; -ISOVUE-370 76% 100ML VIAL ONE; +NYST-38 PO; +PRED5TA PO; +SYNT25TA PO
== END ==
LOC: M LAB REF 16:23
PROVIDERS: ATTEND Otolaryngology
DX: B37.0 Candidal stomatitis (principal)

== ENCOUNTER → 2024-01-04 | Outpatient (CLI) | payer MEDICARE, BC ==
[~2024-01-04] MED LIST changes: +SYNT50TA PO
== END ==
LOC: M RAD 08:12
PROVIDERS: ATTEND Nurse Practitioner
DX: C82.90 Follicular lymphoma, unspecified, unspecified site (principal)